=== PATIENT | female | born 1955 | race Caucasian/White ===

== ENCOUNTER 2017-07-24 11:51 | Inpatient (IN) | payer MEDICAID ==
[~2017-07-24] VITALS: Ht 154.9 cm; Wt 81.6 kg
[2017-07-24] MEDS ORDERED: Sodium Chloride 500ML 500 ML IV ONE (11:56)
[2017-07-24 12:00] VITALS: BP 96/62
--- NOTE | 2017-07-24 12:54 | Emergency Room Report ---
History of Present Illness General Chief Complaint: Abdominal Pain Source: Patient, Medical Record Present Illness HPI Patient present with complaints of lower abdominal suprapubic fullness and heaviness Dysuria and frequency patient has also seen evidence of blood in her urine Feeling generally weak Patient gives a report that she had a recent colonoscopy And reports that she had stones removed during the procedure Denies any vomiting or diarrhea denies any chest pain or shortness of breath questionable low-grade fever Denies any flank pain Allergies: Coded Allergies: No Known Allergies (Verified , 09/18/11) Patient History Past Medical History: see triage record Pertinent Family History: none Reviewed Nursing Documentation: PMH: Agreed, PSxH: Agreed Nursing Documentation-PMH Past Medical History: No History, Except For Hx Cardiac Problems: Yes - CAD, hyperlipidemia Hx Gastrointestinal Problems: Yes - dyspepsia History Of Psychiatric Problem: Yes - anxiety Review of Systems All Other Systems: negative except mentioned in HPI Physical Exam Vital Signs Date Time Temp Pulse Resp B/P (MAP) Pulse Ox O2 Delivery O2 Flow Rate FiO2 07/24/17 11:40 98.1 75 20 91/61 99 Nasal Cannula 2.0 Sp02 EP Interpretation: reviewed, normal General Appearance: no apparent distress - However patient appears frail Head: normocephalic, atraumatic Eyes: bilateral eye PERRL, bilateral eye EOMI ENT: hearing grossly normal, normal pharynx, TMs + canals normal, uvula midline , dry mucus membranes Neck: full range of motion, supple, no meningismus, no bony tend Respiratory: lungs clear, normal breath sounds, no rhonchi, no respiratory distress, no retraction, no accessory muscle use Cardiovascular #1: normal peripheral pulses, regular rate, rhythm, no edema, no gallop, no JVD, no murmur Gastrointestinal: normal bowel sounds, non tender, soft, no mass, no organomegaly, non-distended, no guarding, no hernia, no pulsatile mass, no rebound Genitourinary: no CVA tenderness Musculoskeletal: normal inspection Neurologic: oriented x3, responsive, 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-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 nml as tested, motor strength/ tone normal, sensory intact Psychiatric: mood/affect normal Skin: normal color, no rash, warm/dry, palpation normal Lymphatic: normal inspection, no adenopathy Medical Decision Making Diagnostic Impression: Primary Impression: UTI (urinary tract infection) Additional Impression: Sepsis ER Course Given the patient's history and presentation multiple differentials considered Patient has extensive blood work and imaging initiated Urine sample does show infectious pathology Patient initiated on IV antibiotics At this time continues to better given her general malaise and weakness patient is admitted for further care Labs Test 07/24/17 12:59 White Blood Count 12.6 K/UL (4.8-10.8) Red Blood Count 3.94 M/UL (4.20-5.40) Hemoglobin 12.5 G/DL (12.0-16.0) Hematocrit 36.8 % (37.0-47.0) Mean Corpuscular Volume 93 FL (80-99) Mean Corpuscular Hemoglobin 31.8 PG (27.0-31.0) Mean Corpuscular Hemoglobin Concent 34.0 G/DL (32.0-36.0) Red Cell Distribution Width 13.9 % (11.6-14.8) Platelet Count 347 K/UL (150-450) Mean Platelet Volume 7.1 FL (6.5-10.1) Neutrophils (%) (Auto) 59.5 % (45.0-75.0) Lymphocytes (%) (Auto) 30.2 % (20.0-45.0) Monocytes (%) (Auto) 7.2 % (1.0-10.0) Eosinophils (%) (Auto) 2.1 % (0.0-3.0) Basophils (%) (Auto) 1.0 % (0.0-2.0) Urine Color Yellow Urine Appearance Slightly cloudy Urine pH 7 (4.5-8.0) Urine Specific [place] 1.010 (1.005-1.035) Urine Protein Negative (NEGATIVE) Urine Glucose (UA) Negative (NEGATIVE) Urine Ketones Negative (NEGATIVE) Urine Occult Blood 4+ (NEGATIVE) Urine Nitrite Negative (NEGATIVE) Urine Bilirubin Negative (NEGATIVE) Urine Urobilinogen Normal MG/DL (0.0-1.0) Urine Leukocyte Esterase 2+ (NEGATIVE) Urine RBC 2-4 /HPF (0 - 2) Urine WBC 5-10 /HPF (0 - 2) Urine Squamous Epithelial Cells Few /LPF (NONE/OCC) Urine Bacteria Few /HPF (NONE) Sodium Level 141 mEQ/L (135-145) Potassium Level 3.8 mEQ/L (3.4-4.9) Chloride Level 101 mEQ/L (98-107) Carbon Dioxide Level 32 mEQ/L (20-30) Anion Gap 8 (5-15) Blood Urea Nitrogen 12 mg/dL (7-23) Creatinine 0.8 mg/dL (0.5-0.9) Estimat Glomerular Filtration Rate > 60 mL/min (>60) Glucose Level 105 mg/dL (74-106) Calcium Level 9.6 mg/dL (8.6-10.2) Total Bilirubin 0.3 mg/dL (0.0-1.2) Aspartate Amino Transf (AST/SGOT) 27 U/L (5-40) Alanine Aminotransferase (ALT/SGPT) 14 U/L (3-33) Alkaline Phosphatase 52 U/L (35-104) Total Protein 7.7 g/dL (6.6-8.7) Albumin 4.1 g/dL (3.5-5.2) Globulin 3.6 g/dL Albumin/Globulin Ratio 1.1 (1.0-2.7) Lipase 19 U/L (< 60) Rhythm Strip Diag. Results EP Interpretation: yes Rate: 88 Rhythm: NSR, no PVC's, no ectopy CT/MRI/US Diagnostic Results CT/MRI/US Diagnostic Results : Impression abdominal pelvis CT:Impression: Biliary stent. Pneumobilia indicating stent patency. Mild basilar atelectasis Moderate hiatal hernia Atherosclerotic disease Atrophic uterus Last Vital Signs Date Time Temp Pulse Resp B/P (MAP) Pulse Ox O2 Delivery O2 Flow Rate FiO2 07/24/17 12:00 75 20 96/62 99 Room Air 07/24/17 11:40 98.1 2.0 Status: improved Disposition: ADMITTED INPATIENT Condition: Serious Referrals: JASMIN STARKEY (PCP) GABRIELA GAYLE D.O. Jul 24, 2017 12:54
[2017-07-24 13:30] LABS: APPEARANCE,URINE SLIGHTLY CLOUDY; EOSINOPHILS % (AUTO) 2.1 % (0.0-3.0); KETONES,URINE NEGATIVE (NEGATIVE); LEUKOCYTE ESTERASE ,URINE 2+ (NEGATIVE); LYMPHOCYTES % (AUTO) 30.2 % (20.0-45.0); MEAN CORPUSCULAR HEMOGLOBIN 31.8 PG (27.0-31.0); MEAN CORPUSCULAR VOLUME 93 FL (80-99); MEAN PLATELET VOLUME 7.1 FL (6.5-10.1); MONOCYTES % (AUTO) 7.2 % (1.0-10.0); NEUTROPHILS % (AUTO) 59.5 % (45.0-75.0); NITRITE,URINE NEGATIVE (NEGATIVE); PH,URINE 7 (4.5-8.0); PLATELET COUNT 347 K/UL (150-450); PROTEIN,URINE NEGATIVE (NEGATIVE); RED BLOOD COUNT 3.94 M/UL (4.20-5.40); RED CELL DISTRIBUTION WIDTH 13.9 % (11.6-14.8); UROBILINOGEN,URINE NORMAL MG/DL (0.0-1.0); WHITE BLOOD COUNT 12.6 K/UL (4.8-10.8)
[2017-07-24 13:39] LABS: BACTERIA,URINE FEW /HPF; SQUAMOUS EPITHELIAL CELL,UR FEW /LPF (NONE/OCC)
[2017-07-24] MEDS ORDERED: cefTRIAXone 1 GM in NS 55 ML IVPB ONE (13:45)
[2017-07-24 13:53] LABS: ALANINE AMINOTRANSFERASE 14 U/L (3-33); ALBUMIN/GLOBULIN RATIO 1.1 (1.0-2.7); ANION GAP 8 (5-15); ASPARTATE AMINO TRANSFERASE 27 U/L (5-40); CALCIUM 9.6 mg/dL (8.6-10.2); CARBON DIOXIDE 32 mEQ/L (20-30); CHLORIDE 101 mEQ/L (98-107); CREATININE 0.8 mg/dL (0.5-0.9); GLOMERULAR FILTRATION RATE > 60 mL/min (>60); HEMOLYSIS 0; LIPASE 19 U/L (< 60); POTASSIUM 3.8 mEQ/L (3.4-4.9); SODIUM 141 mEQ/L (135-145); TOTAL PROTEIN 7.7 g/dL (6.6-8.7)
--- NOTE | 2017-07-24 14:08 | Diagnostic Imaging Report ---
Indication: Abdominal pain Technique: Continuous helical transaxial imaging of the abdomen and pelvis was obtained from the lung bases to the pubic symphysis. No intravenous contrast was administered. Coronal 2-D reformats were also obtained. Total Dose length Product (DLP): [address] Dose Index Volume (CTDIvol): 2.15, 17.73 mGy Comparison: none Findings: There is a moderate size hiatal hernia. There is pneumobilia associated with presence of a biliary stent which appears to be in good position. Appendix SVC. There are no secondary signs of acute appendicitis. No free fluid or free air identified. Aorta is mildly ectatic and calcified. Small iliac nodes are present nonspecific. The uterus is present and atrophic. There is no nephrolithiasis identified. Extrarenal pelvis noted bilaterally. Impression: Biliary stent. Pneumobilia indicating stent patency. Mild basilar atelectasis Moderate hiatal hernia Atherosclerotic disease Atrophic uterus The CT scanner at [facility] is accredited by the [employer] and the scans are performed using dose optimization techniques as appropriate to a performed exam including Automatic Exposure control.
[2017-07-24] MEDS ORDERED: Nitroglycerin Subl 0.4mg tab SL PRN (14:45)
[2017-07-24] MEDS ORDERED: LORazepam Inj 2mg/ml 1ml IV PRN (14:45)
[2017-07-24] MEDS ORDERED: Miralax 17gm pkt ORAL PRN (14:45)
[2017-07-24] MEDS ORDERED: Mylanta II UD 30ml ORAL PRN (14:45)
[2017-07-24] MEDS ORDERED: Metoclopramide 10mg/2ml Inj IVP PRN (14:45)
[2017-07-24 15:04] VITALS: BP 96/55
[2017-07-24] MEDS ORDERED: FOSAMAX70 MG ORAL (15:05)
[2017-07-24] MEDS ORDERED: TOPROL XL100 MG ORAL (15:05)
[2017-07-24] MEDS ORDERED: ATORVASTATIN CA10 MG ORAL (15:05)
[2017-07-24] MEDS ORDERED: DALMANE15 MG ORAL (15:05)
[2017-07-24] MEDS ORDERED: ZYPREXA10 MG ORAL (15:05)
[2017-07-24] MEDS ORDERED: PRILOSEC OTC20 MG ORAL (15:05)
[2017-07-24] MEDS ORDERED: CARAFATE1 G1 ORAL (15:05)
[2017-07-24] MEDS ORDERED: HYOSCYAMINE0.375 M1 ORAL (15:05)
[2017-07-24] MEDS ORDERED: ZOFRAN ODT8 MG ORAL (15:05)
[2017-07-24] MEDS ORDERED: BISACODYL5 MG ORAL (15:05)
[2017-07-24] MEDS ORDERED: ATIVAN0.5 MG ORAL (15:05)
[2017-07-24] MEDS ORDERED: TESSALON PERLE100 MG ORAL (15:05)
[2017-07-24] MEDS ORDERED: PROTONIX40 MG ORAL (15:05)
[2017-07-24] MEDS ORDERED: FENOFIBRATE150 MG PO (15:05)
[2017-07-24] MEDS ORDERED: CYMBALTA60 MG ORAL (15:05)
[2017-07-24] MEDS ORDERED: PAROXETINE HCL20 MG PO (15:05)
[2017-07-24 16:16] VITALS: BP 110/67
--- NOTE | 2017-07-24 18:40 | History and Physical ---
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 Denies any vomiting or diarrhea denies any chest pain or shortness of breath questionable low-grade fever. Allergies: Coded Allergies: No Known Allergies (Verified , 09/18/11) Medication History Scheduled Alendronate Sodium* (Fosamax*), 70 MG ORAL ONCE A WEEK, (Reported) Atorvastatin Calcium* (Lipitor*), 10 MG ORAL BEDTIME, (Reported) Benzonatate* (Tessalon Perle*), 100 MG ORAL THREE TIMES A DAY, (Reported) Bisacodyl* (Dulcolax*), 5 MG ORAL DAILY, (Reported) Duloxetine Hcl* (Cymbalta*), 60 MG ORAL DAILY, (Reported) Flurazepam HCl (Flurazepam HCl), 15 MG ORAL QHS, (Reported) Hyoscyamine* (Levsinex*), 0.125 MG ORAL EVERY 12 HOURS, (Reported) Lorazepam* (Ativan*), 0.5 MG ORAL HS, (Reported) Metoprolol Succinate* (Toprol Xl*), 100 MG ORAL DAILY, (Reported) Olanzapine* (Zyprexa*), 10 MG ORAL DAILY, (Reported) Omeprazole Magnesium (Prilosec Otc), 20 MG ORAL DAILY, (Reported) Pantoprazole* (Protonix*), 40 MG ORAL DAILY, (Reported) Paroxetine Hcl* (Paxil*), 30 MG PO DAILY, (Reported) Sucralfate* (Carafate*), 1 GM ORAL Q8HR, (Reported) Scheduled PRN Ondansetron Odt* (Zofran Odt*), 8 MG ORAL Q6H PRN for Nausea & Vomiting, ( Reported) Miscellaneous Medications Fenofibrate (Fenofibrate), 145 MG PO, (Reported) Patient History Healthcare decision maker Resuscitation status Advanced Directive on File Past Medical/Surgical History Past Medical/Surgical History: (1) biliary stent (2) Abdominal pain Review of Systems All Other Systems: negative except mentioned in HPI Physical Exam General Appearance: WD/WN Lines, tubes and drains: peripheral, central line HEENT: normocephalic, atraumatic Neck: non-tender, normal alignment Respiratory/Chest: chest wall non-tender, lungs clear Breasts: no masses Cardiovascular/Chest: normal peripheral pulses Abdomen: normal bowel sounds, non tender Genitourinary/Rectal: normal genital exam Extremities: normal range of motion, non-pitting Neurologic: 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 technical officer II-XII grossly normal Lymphatic: anterior cervical Last 24 Hour Vital Signs Date Time Temp Pulse Resp B/P (MAP) Pulse Ox O2 Delivery O2 Flow Rate FiO2 07/24/17 16:16 97.7 69 19 110/67 96 Room Air 07/24/17 15:04 97.7 68 16 96/55 100 Room Air 07/24/17 14:52 67 16 98/55 98 Room Air 07/24/17 12:00 75 20 96/62 99 Room Air 07/24/17 11:40 98.1 75 20 91/61 99 Nasal Cannula 2.0 Intake and Output 07/24/17 07/25/17 19:00 07:00 Intake Total 0 ml Output Total 100 ml Balance -100 ml Intake Oral 0 ml Output Urine Total 100 ml Laboratory Tests Test 07/24/17 12:59 White Blood Count 12.6 K/UL (4.8-10.8) H Red Blood Count 3.94 M/UL (4.20-5.40) L Hemoglobin 12.5 G/DL (12.0-16.0) Hematocrit 36.8 % (37.0-47.0) L Mean Corpuscular Volume 93 FL (80-99) Mean Corpuscular Hemoglobin 31.8 PG (27.0-31.0) H Mean Corpuscular Hemoglobin Concent 34.0 G/DL (32.0-36.0) Red Cell Distribution Width 13.9 % (11.6-14.8) Platelet Count 347 K/UL (150-450) Mean Platelet Volume 7.1 FL (6.5-10.1) Neutrophils (%) (Auto) 59.5 % (45.0-75.0) Lymphocytes (%) (Auto) 30.2 % (20.0-45.0) Monocytes (%) (Auto) 7.2 % (1.0-10.0) Eosinophils (%) (Auto) 2.1 % (0.0-3.0) Basophils (%) (Auto) 1.0 % (0.0-2.0) Urine Color Yellow Urine Appearance Slightly cloudy Urine pH 7 (4.5-8.0) Urine Specific [place] 1.010 (1.005-1.035) Urine Protein Negative (NEGATIVE) Urine Glucose (UA) Negative (NEGATIVE) Urine Ketones Negative (NEGATIVE) Urine Occult Blood 4+ (NEGATIVE) H Urine Nitrite Negative (NEGATIVE) Urine Bilirubin Negative (NEGATIVE) Urine Urobilinogen Normal MG/DL (0.0-1.0) Urine Leukocyte Esterase 2+ (NEGATIVE) H Urine RBC 2-4 /HPF (0 - 2) H Urine WBC 5-10 /HPF (0 - 2) H Urine Squamous Epithelial Cells Few /LPF (NONE/OCC) Urine Bacteria Few /HPF (NONE) Sodium Level 141 mEQ/L (135-145) Potassium Level 3.8 mEQ/L (3.4-4.9) Chloride Level 101 mEQ/L (98-107) Carbon Dioxide Level 32 mEQ/L (20-30) H Anion Gap 8 (5-15) Blood Urea Nitrogen 12 mg/dL (7-23) Creatinine 0.8 mg/dL (0.5-0.9) Estimat Glomerular Filtration Rate > 60 mL/min (>60) Glucose Level 105 mg/dL (74-106) Calcium Level 9.6 mg/dL (8.6-10.2) Total Bilirubin 0.3 mg/dL (0.0-1.2) Aspartate Amino Transf (AST/SGOT) 27 U/L (5-40) Alanine Aminotransferase (ALT/SGPT) 14 U/L (3-33) Alkaline Phosphatase 52 U/L (35-104) Total Protein 7.7 g/dL (6.6-8.7) Albumin 4.1 g/dL (3.5-5.2) Globulin 3.6 g/dL Albumin/Globulin Ratio 1.1 (1.0-2.7) Lipase 19 U/L (< 60) Height (Feet): 5 Height (Inches): 1.00 Weight (Pounds): 180 Medications Current Medications Medications (Trade) Dose Ordered Sig/Zenobia Route PRN Reason Start Time Stop Time Status Last Admin Dose Admin Acetaminophen (Tylenol) 650 mg Q4H PRN ORAL fever 07/24/17 14:45 08/23/17 14:44 Al Hydroxide/Mg Hydroxide (Mylanta II) 30 ml Q6H PRN ORAL dyspepsia 07/24/17 14:45 08/23/17 14:44 Dextrose (Dextrose 50%) STAT PRN IV Hypoglycemia 07/24/17 14:45 08/23/17 14:44 Dextrose/Sodium Chloride 1,000 ml @ 75 mls/hr [id number] IV 07/24/17 17:40 08/23/17 17:39 Diphenhydramine HCl (Benadryl) 25 mg Q6H PRN ORAL Itching/Pruritis 07/24/17 14:45 08/23/17 14:44 Heparin Sodium (Porcine) (Heparin 5000 units/ml) 5,000 units EVERY 12 HOURS SUBQ 07/24/17 21:00 08/23/17 20:59 Lorazepam (Ativan 2mg/ml 1ml) 1 mg EVERY 4 HOURS PRN IV agitation 07/24/17 14:45 07/31/17 14:44 Metoclopramide HCl (Reglan) 10 mg EVERY 6 HOURS PRN IVP servere nauasea 07/24/17 14:45 08/23/17 14:44 Morphine Sulfate (Morphine Sulfate) 2 mg EVERY 4 HOURS PRN IVP severe Pain (Pain Scale 7-10) 07/24/17 14:45 07/31/17 14:44 Nitroglycerin (Ntg) 0.4 mg Q5M X 3 DOSES PRN SL Prn Chest Pain 07/24/17 14:45 08/23/17 14:44 Ondansetron HCl (Zofran) 4 mg Q6H PRN IVP Nausea & Vomiting 07/24/17 14:45 08/23/17 14:44 Pantoprazole (Protonix) 40 mg DAILY IV 07/25/17 09:00 08/24/17 08:59 Polyethylene Glycol (Miralax) 17 gm HSPRN PRN ORAL Constipation 07/24/17 14:45 08/23/17 14:44 Promethazine HCl (Phenergan) 25 mg EVERY 8 HOURS PRN IV refractory nausea 07/24/17 14:45 08/23/17 14:44 Temazepam (Restoril) 15 mg HSPRN PRN ORAL Insomnia 07/24/17 14:45 07/31/17 14:44 Assessment/Plan Problem List: (1) Abdominal pain ICD Codes: R10.9 - Unspecified abdominal pain SNOMED: [id number] (2) biliary stent Assessment/Plan npo IV fluids gets records from previous hospitalization GI evaluation TANGELA SCRUGGS Jul 24, 2017 18:40
[2017-07-24] MEDS: D5 1/2NS 1,000 ML IV SCH (18:51)
--- NOTE | 2017-07-24 19:07 | Consultation ---
History of Present Illness General Date patient seen: Jul 24, 2017 Time patient seen: 21:27 Chief Complaint: Abdominal Pain Present Illness HPI 61 y/o F with hx of CAD, HLD, GERD, Anxiety presents to ED on 07/24 with lower abd/suprapubic fullness and heaviness, dysuria, frequency and hematuria. Also endorse general weakness. Denies vomiting, diarrhea, CP, SOB, flank pain, cough, n/v. Allergies: Coded Allergies: No Known Allergies (Verified , 09/18/11) Medication History Scheduled Alendronate Sodium* (Fosamax*), 70 MG ORAL ONCE A WEEK, (Reported) Atorvastatin Calcium* (Lipitor*), 10 MG ORAL BEDTIME, (Reported) Benzonatate* (Tessalon Perle*), 100 MG ORAL THREE TIMES A DAY, (Reported) Bisacodyl* (Dulcolax*), 5 MG ORAL DAILY, (Reported) Duloxetine Hcl* (Cymbalta*), 60 MG ORAL DAILY, (Reported) Flurazepam HCl (Flurazepam HCl), 15 MG ORAL QHS, (Reported) Hyoscyamine* (Levsinex*), 0.125 MG ORAL EVERY 12 HOURS, (Reported) Lorazepam* (Ativan*), 0.5 MG ORAL HS, (Reported) Metoprolol Succinate* (Toprol Xl*), 100 MG ORAL DAILY, (Reported) Olanzapine* (Zyprexa*), 10 MG ORAL DAILY, (Reported) Omeprazole Magnesium (Prilosec Otc), 20 MG ORAL DAILY, (Reported) Pantoprazole* (Protonix*), 40 MG ORAL DAILY, (Reported) Paroxetine Hcl* (Paxil*), 30 MG PO DAILY, (Reported) Sucralfate* (Carafate*), 1 GM ORAL Q8HR, (Reported) Scheduled PRN Ondansetron Odt* (Zofran Odt*), 8 MG ORAL Q6H PRN for Nausea & Vomiting, ( Reported) Miscellaneous Medications Fenofibrate (Fenofibrate), 145 MG PO, (Reported) Patient History Healthcare decision maker Resuscitation status Advanced Directive on File Patient History Narrative PMHx: Above FHx: non pertinent from ID Social Hx:d enies toxic habits Review of Systems All Other Systems: negative except mentioned in HPI Physical Exam Physical Exam Narrative General Appearance: no apparent distress - However patient appears frail HEENT: no oral lesions, PERRL Neck: full range of motion, supple, Respiratory: lungs clear, normal breath sounds, no rhonchi, no respiratory distress Cardiovascular regular rate, rhythm, no edema, no gallop, no JVD, no murmur Gastrointestinal: normal bowel sounds, non tender, soft, no mass, no organomegaly, non-distended, Genitourinary: no CVA tenderness Musculoskeletal: normal inspection Neurologic: oriented x3, responsive, no focal deficits Skin: normal color, no rash, warm/dry, palpation normal Last 24 Hour Vital Signs Date Time Temp Pulse Resp B/P (MAP) Pulse Ox O2 Delivery O2 Flow Rate FiO2 07/24/17 16:16 97.7 69 19 110/67 96 Room Air 07/24/17 15:04 97.7 68 16 96/55 100 Room Air 07/24/17 14:52 67 16 98/55 98 Room Air 07/24/17 12:00 75 20 96/62 99 Room Air 07/24/17 11:40 98.1 75 20 91/61 99 Nasal Cannula 2.0 Intake and Output 07/24/17 07/25/17 19:00 07:00 Intake Total 0 ml Output Total 100 ml Balance -100 ml Intake Oral 0 ml Output Urine Total 100 ml Laboratory Tests Test 07/24/17 12:59 White Blood Count 12.6 K/UL (4.8-10.8) H Red Blood Count 3.94 M/UL (4.20-5.40) L Hemoglobin 12.5 G/DL (12.0-16.0) Hematocrit 36.8 % (37.0-47.0) L Mean Corpuscular Volume 93 FL (80-99) Mean Corpuscular Hemoglobin 31.8 PG (27.0-31.0) H Mean Corpuscular Hemoglobin Concent 34.0 G/DL (32.0-36.0) Red Cell Distribution Width 13.9 % (11.6-14.8) Platelet Count 347 K/UL (150-450) Mean Platelet Volume 7.1 FL (6.5-10.1) Neutrophils (%) (Auto) 59.5 % (45.0-75.0) Lymphocytes (%) (Auto) 30.2 % (20.0-45.0) Monocytes (%) (Auto) 7.2 % (1.0-10.0) Eosinophils (%) (Auto) 2.1 % (0.0-3.0) Basophils (%) (Auto) 1.0 % (0.0-2.0) Urine Color Yellow Urine Appearance Slightly cloudy Urine pH 7 (4.5-8.0) Urine Specific [place] 1.010 (1.005-1.035) Urine Protein Negative (NEGATIVE) Urine Glucose (UA) Negative (NEGATIVE) Urine Ketones Negative (NEGATIVE) Urine Occult Blood 4+ (NEGATIVE) H Urine Nitrite Negative (NEGATIVE) Urine Bilirubin Negative (NEGATIVE) Urine Urobilinogen Normal MG/DL (0.0-1.0) Urine Leukocyte Esterase 2+ (NEGATIVE) H Urine RBC 2-4 /HPF (0 - 2) H Urine WBC 5-10 /HPF (0 - 2) H Urine Squamous Epithelial Cells Few /LPF (NONE/OCC) Urine Bacteria Few /HPF (NONE) Sodium Level 141 mEQ/L (135-145) Potassium Level 3.8 mEQ/L (3.4-4.9) Chloride Level 101 mEQ/L (98-107) Carbon Dioxide Level 32 mEQ/L (20-30) H Anion Gap 8 (5-15) Blood Urea Nitrogen 12 mg/dL (7-23) Creatinine 0.8 mg/dL (0.5-0.9) Estimat Glomerular Filtration Rate > 60 mL/min (>60) Glucose Level 105 mg/dL (74-106) Calcium Level 9.6 mg/dL (8.6-10.2) Total Bilirubin 0.3 mg/dL (0.0-1.2) Aspartate Amino Transf (AST/SGOT) 27 U/L (5-40) Alanine Aminotransferase (ALT/SGPT) 14 U/L (3-33) Alkaline Phosphatase 52 U/L (35-104) Total Protein 7.7 g/dL (6.6-8.7) Albumin 4.1 g/dL (3.5-5.2) Globulin 3.6 g/dL Albumin/Globulin Ratio 1.1 (1.0-2.7) Lipase 19 U/L (< 60) Height (Feet): 5 Height (Inches): 1.00 Weight (Pounds): 180 Medications Current Medications Medications (Trade) Dose Ordered Sig/Zenobia Route PRN Reason Start Time Stop Time Status Last Admin Dose Admin Acetaminophen (Tylenol) 650 mg Q4H PRN ORAL fever 07/24/17 14:45 08/23/17 14:44 Al Hydroxide/Mg Hydroxide (Mylanta II) 30 ml Q6H PRN ORAL dyspepsia 07/24/17 14:45 08/23/17 14:44 Dextrose (Dextrose 50%) STAT PRN IV Hypoglycemia 07/24/17 14:45 08/23/17 14:44 Dextrose/Sodium Chloride 1,000 ml @ 75 mls/hr [id number] IV 07/24/17 17:40 08/23/17 17:39 07/24/17 18:51 Diphenhydramine HCl (Benadryl) 25 mg Q6H PRN ORAL Itching/Pruritis 07/24/17 14:45 08/23/17 14:44 Heparin Sodium (Porcine) (Heparin 5000 units/ml) 5,000 units EVERY 12 HOURS SUBQ 07/24/17 21:00 08/23/17 20:59 Lorazepam (Ativan 2mg/ml 1ml) 1 mg EVERY 4 HOURS PRN IV agitation 07/24/17 14:45 07/31/17 14:44 Metoclopramide HCl (Reglan) 10 mg EVERY 6 HOURS PRN IVP servere nauasea 07/24/17 14:45 08/23/17 14:44 Morphine Sulfate (Morphine Sulfate) 2 mg EVERY 4 HOURS PRN IVP severe Pain (Pain Scale 7-10) 07/24/17 14:45 07/31/17 14:44 Nitroglycerin (Ntg) 0.4 mg Q5M X 3 DOSES PRN SL Prn Chest Pain 07/24/17 14:45 08/23/17 14:44 Ondansetron HCl (Zofran) 4 mg Q6H PRN IVP Nausea & Vomiting 07/24/17 14:45 08/23/17 14:44 Pantoprazole (Protonix) 40 mg DAILY IV 07/25/17 09:00 08/24/17 08:59 Polyethylene Glycol (Miralax) 17 gm HSPRN PRN ORAL Constipation 07/24/17 14:45 08/23/17 14:44 Promethazine HCl (Phenergan) 25 mg EVERY 8 HOURS PRN IV refractory nausea 07/24/17 14:45 08/23/17 14:44 Temazepam (Restoril) 15 mg HSPRN PRN ORAL Insomnia 07/24/17 14:45 07/31/17 14:44 Assessment/Plan Assessment/Plan Abx: IV Ceftriaxone x1 07/23 Assesment: Lower abd fullnes/Dysuria - r/o UTI, only mild pyuria on u/a, however -CT abd/p: Biliary stent. Pneumobilia indicating stent patency. Mild basilar atelectasis. Moderate hiatal hernia. Atherosclerotic disease. Atrophic uterus -u/a WBC 5-10, nit neg, leuk +2; ucx pending Leukocytosis, mild CAD, HLD, GERD, Anxiety Plan: -Continue IV Ceftriaxone pending urine culture -f/u cx -Monitor CBC/BMP, temperatures Thank you for this consultation. Will continue to follow along with you. Discussed with Roula Flowers M.D. Jul 24, 2017 19:07
[2017-07-24 20:00] VITALS: BP 109/56
[2017-07-24] MEDS: Heparin 5000 units/ml inj SUBQ SCH (21:33)
[2017-07-25] VITALS: BP 100/62
[2017-07-25] MEDS: cefTRIAXone 1 GM in D5W 55 ML IVPB SCH ×2 (01:33→21:48)
[2017-07-25 04:00] VITALS: BP 103/61
[2017-07-25] MEDS: D5 1/2NS 1,000 ML IV SCH ×3 (06:54→17:39)
[2017-07-25 07:31] LABS: BASOPHILS % (AUTO) 1.4 % (0.0-2.0); EOSINOPHILS % (AUTO) 4.6 % (0.0-3.0); LYMPHOCYTES % (AUTO) 46.9 % (20.0-45.0); MEAN CORPUSCULAR HEMOGLOBIN 30.1 PG (27.0-31.0); MEAN CORPUSCULAR HGB CONC 31.8 G/DL (32.0-36.0); MEAN CORPUSCULAR VOLUME 95 FL (80-99); MEAN PLATELET VOLUME 7.1 FL (6.5-10.1); MONOCYTES % (AUTO) 8.3 % (1.0-10.0); NEUTROPHILS % (AUTO) 38.8 % (45.0-75.0); PLATELET COUNT 360 K/UL (150-450); WHITE BLOOD COUNT 7.5 K/UL (4.8-10.8)
[2017-07-25 07:47] LABS: ALANINE AMINOTRANSFERASE 12 U/L (3-33); ALBUMIN/GLOBULIN RATIO 0.6 (1.0-2.7); AMYLASE 51 U/L (10-110); ANION GAP 10 (5-15); ASPARTATE AMINO TRANSFERASE 25 U/L (5-40); CALCIUM 8.5 mg/dL (8.6-10.2); CARBON DIOXIDE 30 mEQ/L (20-30); CHLORIDE 106 mEQ/L (98-107); CREATININE 0.7 mg/dL (0.5-0.9); GLOMERULAR FILTRATION RATE > 60 mL/min (>60); HEMOLYSIS 1; LIPASE 15 U/L (< 60); POTASSIUM 3.7 mEQ/L (3.4-4.9); SODIUM 146 mEQ/L (135-145); TOTAL PROTEIN 8.5 g/dL (6.6-8.7)
[2017-07-25 08:10] VITALS: BP 101/59
--- NOTE | 2017-07-25 08:32 | Infectious Diseases Prog Note ---
Assessment/Plan Assessment/Plan Abx: IV Ceftriaxone x1 07/23 Assesment: Lower abd fullnes/Dysuria - r/o UTI, only mild pyuria on u/a, however -CT abd/p: Biliary stent. Pneumobilia indicating stent patency. Mild basilar atelectasis. Moderate hiatal hernia. Atherosclerotic disease. Atrophic uterus -u/a WBC 5-10, nit neg, leuk +2; ucx pending Leukocytosis, mild-resolved CAD, HLD, GERD, Anxiety Plan: -Continue IV Ceftriaxone #3/-7 pending urine culture -upon discharge can be transition to PO keflex if susceptible -f/u cx -Monitor CBC/BMP, temperatures Thank you for this consultation. Will continue to follow along with you. Discussed with RN. Subjective Allergies: Coded Allergies: No Known Allergies (Verified , 09/18/11) Subjective afebrile VSS leukocytosis resolved ucx pending Objective Vital Signs Last 24 Hour Vital Signs Date Time Temp Pulse Resp B/P (MAP) Pulse Ox O2 Delivery O2 Flow Rate FiO2 07/25/17 08:10 97.5 77 19 101/59 95 Room Air 07/25/17 04:00 98.1 68 20 103/61 92 Room Air 07/25/17 00:00 97.1 72 20 100/62 97 Room Air 07/24/17 20:00 97.1 71 20 109/56 95 Room Air 07/24/17 16:16 97.7 69 19 110/67 96 Room Air 07/24/17 15:04 97.7 68 16 96/55 100 Room Air 07/24/17 14:52 67 16 98/55 98 Room Air 07/24/17 12:00 75 20 96/62 99 Room Air 07/24/17 11:40 98.1 75 20 91/61 99 Nasal Cannula 2.0 Height (Feet): 5 Height (Inches): 1.00 Weight (Pounds): 180 Objective General Appearance: no apparent distress - However patient appears frail HEENT: no oral lesions, PERRL Neck: full range of motion, supple, Respiratory: lungs clear, normal breath sounds, no rhonchi, no respiratory distress Cardiovascular regular rate, rhythm, no edema, no gallop, no JVD, no murmur Gastrointestinal: normal bowel sounds, non tender, soft, no mass, no organomegaly, non-distended, Genitourinary: no CVA tenderness Musculoskeletal: normal inspection Neurologic: oriented x3, responsive, no focal deficits Skin: normal color, no rash, warm/dry, palpation normal reviewed Laboratory Tests Test 07/24/17 12:59 07/25/17 06:25 White Blood Count 12.6 K/UL (4.8-10.8) H 7.5 K/UL (4.8-10.8) Red Blood Count 3.94 M/UL (4.20-5.40) L 3.70 M/UL (4.20-5.40) L Hemoglobin 12.5 G/DL (12.0-16.0) 11.2 G/DL (12.0-16.0) L Hematocrit 36.8 % (37.0-47.0) L 35.1 % (37.0-47.0) L Mean Corpuscular Volume 93 FL (80-99) 95 FL (80-99) Mean Corpuscular Hemoglobin 31.8 PG (27.0-31.0) H 30.1 PG (27.0-31.0) Mean Corpuscular Hemoglobin Concent 34.0 G/DL (32.0-36.0) 31.8 G/DL (32.0-36.0) L Red Cell Distribution Width 13.9 % (11.6-14.8) 14.0 % (11.6-14.8) Platelet Count 347 K/UL (150-450) 360 K/UL (150-450) Mean Platelet Volume 7.1 FL (6.5-10.1) 7.1 FL (6.5-10.1) Neutrophils (%) (Auto) 59.5 % (45.0-75.0) 38.8 % (45.0-75.0) L Lymphocytes (%) (Auto) 30.2 % (20.0-45.0) 46.9 % (20.0-45.0) H Monocytes (%) (Auto) 7.2 % (1.0-10.0) 8.3 % (1.0-10.0) Eosinophils (%) (Auto) 2.1 % (0.0-3.0) 4.6 % (0.0-3.0) H Basophils (%) (Auto) 1.0 % (0.0-2.0) 1.4 % (0.0-2.0) Urine Color Yellow Urine Appearance Slightly cloudy Urine pH 7 (4.5-8.0) Urine Specific Danese 1.010 (1.005-1.035) Urine Protein Negative (NEGATIVE) Urine Glucose (UA) Negative (NEGATIVE) Urine Ketones Negative (NEGATIVE) Urine Occult Blood 4+ (NEGATIVE) H Urine Nitrite Negative (NEGATIVE) Urine Bilirubin Negative (NEGATIVE) Urine Urobilinogen Normal MG/DL (0.0-1.0) Urine Leukocyte Esterase 2+ (NEGATIVE) H Urine RBC 2-4 /HPF (0 - 2) H Urine WBC 5-10 /HPF (0 - 2) H Urine Squamous Epithelial Cells Few /LPF (NONE/OCC) Urine Bacteria Few /HPF (NONE) Sodium Level 141 mEQ/L (135-145) 146 mEQ/L (135-145) H Potassium Level 3.8 mEQ/L (3.4-4.9) 3.7 mEQ/L (3.4-4.9) Chloride Level 101 mEQ/L (98-107) 106 mEQ/L (98-107) Carbon Dioxide Level 32 mEQ/L (20-30) H 30 mEQ/L (20-30) Anion Gap 8 (5-15) 10 (5-15) Blood Urea Nitrogen 12 mg/dL (7-23) 10 mg/dL (7-23) Creatinine 0.8 mg/dL (0.5-0.9) 0.7 mg/dL (0.5-0.9) Estimat Glomerular Filtration Rate > 60 mL/min (>60) > 60 mL/min (>60) Glucose Level 105 mg/dL (74-106) 101 mg/dL (74-106) Calcium Level 9.6 mg/dL (8.6-10.2) 8.5 mg/dL (8.6-10.2) L Total Bilirubin 0.3 mg/dL (0.0-1.2) 0.3 mg/dL (0.0-1.2) Aspartate Amino Transf (AST/SGOT) 27 U/L (5-40) 25 U/L (5-40) Alanine Aminotransferase (ALT/SGPT) 14 U/L (3-33) 12 U/L (3-33) Alkaline Phosphatase 52 U/L (35-104) 47 U/L (35-104) Total Protein 7.7 g/dL (6.6-8.7) 8.5 g/dL (6.6-8.7) Albumin 4.1 g/dL (3.5-5.2) 3.4 g/dL (3.5-5.2) L Globulin 3.6 g/dL 5.1 g/dL Albumin/Globulin Ratio 1.1 (1.0-2.7) 0.6 (1.0-2.7) L Lipase 19 U/L (< 60) 15 U/L (< 60) Activated Partial Thromboplast Time 30 SEC (23-33) Amylase Level 51 U/L (10-110) Current Medications Medications (Trade) Dose Ordered Sig/Zenobia Route PRN Reason Start Time Stop Time Status Last Admin Dose Admin Acetaminophen (Tylenol) 650 mg Q4H PRN ORAL fever 07/24/17 14:45 08/23/17 14:44 Al Hydroxide/Mg Hydroxide (Mylanta II) 30 ml Q6H PRN ORAL dyspepsia 07/24/17 14:45 08/23/17 14:44 Ceftriaxone Sodium 1 gm/ Dextrose 55 ml @ 110 mls/hr Q24H IVPB 07/24/17 22:30 07/31/17 22:29 07/25/17 01:33 Dextrose (Dextrose 50%) STAT PRN IV Hypoglycemia 07/24/17 14:45 08/23/17 14:44 Dextrose/Sodium Chloride 1,000 ml @ 75 mls/hr [id number] IV 07/24/17 17:40 08/23/17 17:39 07/24/17 18:51 Diphenhydramine HCl (Benadryl) 25 mg Q6H PRN ORAL Itching/Pruritis 07/24/17 14:45 08/23/17 14:44 Heparin Sodium (Porcine) (Heparin 5000 units/ml) 5,000 units EVERY 12 HOURS SUBQ 07/24/17 21:00 08/23/17 20:59 07/24/17 21:33 Lorazepam (Ativan 2mg/ml 1ml) 1 mg EVERY 4 HOURS PRN IV agitation 07/24/17 14:45 07/31/17 14:44 Metoclopramide HCl (Reglan) 10 mg EVERY 6 HOURS PRN IVP servere nauasea 07/24/17 14:45 08/23/17 14:44 Morphine Sulfate (Morphine Sulfate) 2 mg EVERY 4 HOURS PRN IVP severe Pain (Pain Scale 7-10) 07/24/17 14:45 07/31/17 14:44 Nitroglycerin (Ntg) 0.4 mg Q5M X 3 DOSES PRN SL Prn Chest Pain 07/24/17 14:45 08/23/17 14:44 Ondansetron HCl (Zofran) 4 mg Q6H PRN IVP Nausea & Vomiting 07/24/17 14:45 08/23/17 14:44 Pantoprazole (Protonix) 40 mg DAILY IV 07/25/17 09:00 08/24/17 08:59 Polyethylene Glycol (Miralax) 17 gm HSPRN PRN ORAL Constipation 07/24/17 14:45 08/23/17 14:44 Promethazine HCl (Phenergan) 25 mg EVERY 8 HOURS PRN IV refractory nausea 07/24/17 14:45 08/23/17 14:44 Temazepam (Restoril) 15 mg HSPRN PRN ORAL Insomnia 07/24/17 14:45 07/31/17 14:44 07/24/17 21:40 Roula Acosta M.D. Jul 25, 2017 08:32
[2017-07-25] MEDS: Pantoprazole Inj IV SCH (08:34)
[2017-07-25] MEDS: Morphine Sulfate 2mg/ml Inj IVP PRN (08:35)
[2017-07-25] MEDS: Heparin 5000 units/ml inj SUBQ SCH ×2 (08:36→21:50)
--- NOTE | 2017-07-25 09:27 | Diagnostic Imaging Report ---
Indication: Abdominal pain Technique: Ultrasound of the abdomen. Comparison: CT abdomen and pelvis from earlier the same day Findings: The pancreas is incompletely visualized. Visualized portions are unremarkable. The liver is normal in size and echogenicity. No focal liver lesions are identified. Visualized portions of the main portal vein and the hepatic veins are grossly unremarkable although incompletely evaluated. Gallbladder is absent. There is pneumobilia. The common bile duct stent is noted within the mid and distal common bile duct. The proximal common bile and measures up to 1.2 cm. Distal common bile duct is obscured. Bilateral kidneys demonstrate normal echogenicity. No focal renal lesions are seen. There is no hydronephrosis. No echogenic renal stones are identified. The spleen is normal in size and echogenicity. The visualized aorta is normal in caliber. Visualized portions of the inferior vena cava are unremarkable. Impression: Cholecystectomy. Common bile duct stent noted in the mid and distal common bile duct. Proximal common bile duct dilated measuring 1.2 cm. Pneumobilia better demonstrated by CT. Clinical correlation recommended.
[2017-07-25 12:00] VITALS: BP 101/61
[2017-07-25 16:00] VITALS: BP 85/54
[2017-07-25] MEDS ORDERED: Tubing IV Secondary IV ONE (16:27)
[2017-07-25 19:41] VITALS: BP 110/75
[2017-07-25] MEDS: Miralax 17gm pkt ORAL SCH (21:00)
--- NOTE | 2017-07-25 23:20 | Pulmonology Progress Note ---
Assessment/Plan Problems: (1) Abdominal pain (2) biliary stent (3) Weakness Assessment/Plan continue npo iv fluids symptomatic treatment GI f/u Subjective ROS Limited/Unobtainable: No Constitutional: Reports: no symptoms HEENT: Repors: no symptoms Respiratory: Reports: no symptoms Allergies: Coded Allergies: No Known Allergies (Verified , 09/18/11) Objective Last 24 Hour Vital Signs Date Time Temp Pulse Resp B/P (MAP) Pulse Ox O2 Delivery O2 Flow Rate FiO2 07/25/17 19:41 97.5 89 20 110/75 98 Room Air 07/25/17 16:00 97.9 83 20 85/54 92 Room Air 07/25/17 12:00 97.5 73 20 101/61 95 Room Air 07/25/17 08:10 97.5 77 19 101/59 95 Room Air 07/25/17 04:00 98.1 68 20 103/61 92 Room Air 07/25/17 00:00 97.1 72 20 100/62 97 Room Air Intake and Output 07/25/17 07/26/17 19:00 07:00 Intake Total 825 ml Output Total 100 ml Balance 725 ml Intake Oral 0 ml IV Total 825 ml Output Urine Total 100 ml # Voids 3 General Appearance: WD/WN HEENT: normocephalic, atraumatic Respiratory/Chest: chest wall non-tender, lungs clear Breasts: no masses Cardiovascular: normal peripheral pulses, no JVD Abdomen: no organomegaly Extremities: no cyanosis Skin: no rash Neurologic/Psychiatric: no motor/sensory deficits Laboratory Tests 07/25/17 06:25: White Blood Count 7.5, Red Blood Count 3.70L, Hemoglobin 11.2L, Hematocrit 35.1L , Mean Corpuscular Volume 95, Mean Corpuscular Hemoglobin 30.1, Mean Corpuscular Hemoglobin Concent 31.8L, Red Cell Distribution Width 14.0, Platelet Count 360, Mean Platelet Volume 7.1, Neutrophils (%) (Auto) 38.8L, Lymphocytes (%) (Auto) 46.9H, Monocytes (%) (Auto) 8.3, Eosinophils (%) (Auto) 4.6H, Basophils (%) (Auto) 1.4, Activated Partial Thromboplast Time 30, Sodium Level 146H, Potassium Level 3.7, Chloride Level 106, Carbon Dioxide Level 30, Anion Gap 10, Blood Urea Nitrogen 10, Creatinine 0.7, Estimat Glomerular Filtration Rate > 60, Glucose Level 101, Calcium Level 8.5L, Total Bilirubin 0.3 , Aspartate Amino Transf (AST/SGOT) 25, Alanine Aminotransferase (ALT/SGPT) 12, Alkaline Phosphatase 47, Total Protein 8.5, Albumin 3.4L, Globulin 5.1, Albumin/ Globulin Ratio 0.6L, Amylase Level 51, Lipase 15 Current Medications Medications (Trade) Dose Ordered Sig/Zenobia Route PRN Reason Start Time Stop Time Status Last Admin Dose Admin Acetaminophen (Tylenol) 650 mg Q4H PRN ORAL fever 07/24/17 14:45 08/23/17 14:44 Al Hydroxide/Mg Hydroxide (Mylanta II) 30 ml Q6H PRN ORAL dyspepsia 07/24/17 14:45 08/23/17 14:44 Ceftriaxone Sodium 1 gm/ Dextrose 55 ml @ 110 mls/hr Q24H IVPB 07/24/17 22:30 07/31/17 22:29 07/25/17 21:48 Dextrose (Dextrose 50%) STAT PRN IV Hypoglycemia 07/24/17 14:45 08/23/17 14:44 Dextrose/Sodium Chloride 1,000 ml @ 75 mls/hr [id number] IV 07/24/17 17:40 08/23/17 17:39 07/25/17 17:39 Diphenhydramine HCl (Benadryl) 25 mg Q6H PRN ORAL Itching/Pruritis 07/24/17 14:45 08/23/17 14:44 Docusate Sodium (Colace) 100 mg TWICE A DAY ORAL 07/26/17 09:00 08/25/17 08:59 Heparin Sodium (Porcine) (Heparin 5000 units/ml) 5,000 units EVERY 12 HOURS SUBQ 07/24/17 21:00 08/23/17 20:59 07/25/17 21:50 Lactulose (Cephulac) 10 gm THREE TIMES A DAY ORAL 07/26/17 09:00 08/25/17 08:59 Lorazepam (Ativan 2mg/ml 1ml) 1 mg EVERY 4 HOURS PRN IV agitation 07/24/17 14:45 07/31/17 14:44 Metoclopramide HCl (Reglan) 10 mg EVERY 6 HOURS PRN IVP servere [email or web address] 07/24/17 14:45 08/23/17 14:44 Morphine Sulfate (Morphine Sulfate) 2 mg EVERY 4 HOURS PRN IVP severe Pain (Pain Scale 7-10) 07/24/17 14:45 07/31/17 14:44 07/25/17 08:35 Nicotine (Nicoderm) 1 patch Q24H TDERMAL 07/25/17 13:00 08/24/17 12:59 07/25/17 13:27 Nitroglycerin (Ntg) 0.4 mg Q5M X 3 DOSES PRN SL Prn Chest Pain 07/24/17 14:45 08/23/17 14:44 Ondansetron HCl (Zofran) 4 mg Q6H PRN IVP Nausea & Vomiting 07/24/17 14:45 08/23/17 14:44 Pantoprazole (Protonix) 40 mg DAILY IV 07/25/17 09:00 08/24/17 08:59 07/25/17 08:34 Polyethylene Glycol (Miralax) 17 gm BEDTIME ORAL 07/25/17 21:00 08/24/17 20:59 Polyethylene Glycol (Miralax) 17 gm HSPRN PRN ORAL Constipation 07/24/17 14:45 08/23/17 14:44 07/25/17 17:38 Promethazine HCl (Phenergan) 25 mg EVERY 8 HOURS PRN IV refractory nausea 07/24/17 14:45 08/23/17 14:44 Temazepam (Restoril) 15 mg HSPRN PRN ORAL Insomnia 07/24/17 14:45 07/31/17 14:44 07/25/17 21:48 TANGELA SCRUGGS Jul 25, 2017 23:20
[2017-07-26 00:49] VITALS: BP 104/63
[2017-07-26 04:16] VITALS: BP 121/72
[2017-07-26] MEDS: Morphine Sulfate 2mg/ml Inj IVP PRN (07:02)
[2017-07-26 07:52] LABS: BASOPHILS % (AUTO) 1.6 % (0.0-2.0); EOSINOPHILS % (AUTO) 5.5 % (0.0-3.0); LYMPHOCYTES % (AUTO) 54.1 % (20.0-45.0); MEAN CORPUSCULAR HEMOGLOBIN 30.4 PG (27.0-31.0); MEAN CORPUSCULAR HGB CONC 32.1 G/DL (32.0-36.0); MEAN CORPUSCULAR VOLUME 95 FL (80-99); MONOCYTES % (AUTO) 9.5 % (1.0-10.0); NEUTROPHILS % (AUTO) 29.4 % (45.0-75.0); PLATELET COUNT 337 K/UL (150-450); RED BLOOD COUNT 3.61 M/UL (4.20-5.40); RED CELL DISTRIBUTION WIDTH 14.1 % (11.6-14.8); WHITE BLOOD COUNT 8.7 K/UL (4.8-10.8)
[2017-07-26 08:00] VITALS: BP 98/60
[2017-07-26 08:31] LABS: ALANINE AMINOTRANSFERASE 12 U/L (3-33); ALBUMIN/GLOBULIN RATIO 0.7 (1.0-2.7); ANION GAP 10 (5-15); ASPARTATE AMINO TRANSFERASE 24 U/L (5-40); CARBON DIOXIDE 30 mEQ/L (20-30); CHLORIDE 104 mEQ/L (98-107); CREATININE 0.7 mg/dL (0.5-0.9); GLOMERULAR FILTRATION RATE > 60 mL/min (>60); POTASSIUM 4.6 mEQ/L (3.4-4.9); SODIUM 144 mEQ/L (135-145); TOTAL PROTEIN 8.4 g/dL (6.6-8.7)
[2017-07-26 08:49] LABS: HEMOLYSIS 2; IRON 46 ug/dL (37-145); TOTAL IRON BINDING CAPACITY 370 ug/dL (250-400)
[2017-07-26] MEDS: Docusate 100mg cap ORAL SCH ×2 (09:00→18:10)
[2017-07-26] MEDS: Lactulose 10gm/15ml UDC ORAL SCH ×3 (09:00→18:10)
[2017-07-26] MEDS: Pantoprazole Inj IV SCH (09:01)
[2017-07-26] MEDS: Heparin 5000 units/ml inj SUBQ SCH ×2 (09:01→20:44)
[2017-07-26] MEDS ORDERED: D5 1/2NS 1000ml IV ONE (09:43)
[2017-07-26] MEDS: D5 1/2NS 1,000 ML IV SCH ×2 (10:43→22:25)
--- NOTE | 2017-07-26 12:57 | General Progress Note ---
Assessment/Plan Problem List: (1) biliary stent (2) Abdominal pain ICD Codes: R10.9 - Unspecified abdominal pain SNOMED: [id number] Assessment/Plan good BM no elevated LFTS needs fu as out patient for stent removal Subjective ROS Limited/Unobtainable: Yes Allergies: Coded Allergies: No Known Allergies (Verified , 09/18/11) Subjective large BM no abd pain Objective Last 24 Hour Vital Signs Date Time Temp Pulse Resp B/P (MAP) Pulse Ox O2 Delivery O2 Flow Rate FiO2 07/26/17 08:00 96.4 88 16 98/60 95 Room Air 07/26/17 04:16 97.6 74 20 121/72 Room Air 07/26/17 00:49 97.0 82 20 104/63 96 Room Air 07/25/17 19:41 97.5 89 20 110/75 98 Room Air 07/25/17 16:00 97.9 83 20 85/54 92 Room Air Laboratory Tests 07/26/17 05:05: White Blood Count 8.7, Red Blood Count 3.61L, Hemoglobin 11.0L, Hematocrit 34.1L , Mean Corpuscular Volume 95, Mean Corpuscular Hemoglobin 30.4, Mean Corpuscular Hemoglobin Concent 32.1, Red Cell Distribution Width 14.1, Platelet Count 337, Mean Platelet Volume 7.0, Neutrophils (%) (Auto) 29.4L, Lymphocytes ( %) (Auto) 54.1H, Monocytes (%) (Auto) 9.5, Eosinophils (%) (Auto) 5.5H, Basophils (%) (Auto) 1.6, Sodium Level 144, Potassium Level 4.6, Chloride Level 104, Carbon Dioxide Level 30, Anion Gap 10, Blood Urea Nitrogen 10, Creatinine 0.7, Estimat Glomerular Filtration Rate > 60, Glucose Level 107H, Calcium Level 9.0, Iron Level 46, Total Iron Binding Capacity 370, Percent Iron Saturation 12L , Unsaturated Iron Binding 324, Total Bilirubin < 0.2, Aspartate Amino Transf ( AST/SGOT) 24, Alanine Aminotransferase (ALT/SGPT) 12, Alkaline Phosphatase 60, Total Protein 8.4, Albumin 3.6, Globulin 4.8, Albumin/Globulin Ratio 0.7L, Carcinoembryonic Antigen 2.1 Height (Feet): 5 Height (Inches): 1.00 Weight (Pounds): 180 General Appearance: alert EENT: normal ENT inspection Neck: supple Cardiovascular: normal rate Respiratory/Chest: decreased breath sounds Abdomen: normal bowel sounds, non tender, soft Extremities: non-tender JASMIN SHAH Jul 26, 2017 12:57
--- NOTE | 2017-07-26 13:42 | Infectious Diseases Prog Note ---
Assessment/Plan Assessment/Plan A; UTI, Likely cystitis s/p Cholecystectomy s/p biliary stent ; continue Rocephin day 4/5 Subjective ROS Limited/Unobtainable: No Constitutional: Reports: no symptoms Respiratory: Reports: no symptoms Cardiovascular: Reports: no symptoms Gastrointestinal/Abdominal: Reports: no symptoms Genitourinary: Reports: no symptoms Allergies: Coded Allergies: No Known Allergies (Verified , 09/18/11) Objective Vital Signs Last 24 Hour Vital Signs Date Time Temp Pulse Resp B/P (MAP) Pulse Ox O2 Delivery O2 Flow Rate FiO2 07/26/17 08:00 96.4 88 16 98/60 95 Room Air 07/26/17 04:16 97.6 74 20 121/72 Room Air 07/26/17 00:49 97.0 82 20 104/63 96 Room Air 07/25/17 19:41 97.5 89 20 110/75 98 Room Air 07/25/17 16:00 97.9 83 20 85/54 92 Room Air Height (Feet): 5 Height (Inches): 1.00 Weight (Pounds): 180 General Appearance: no acute distress HEENT: mucous membranes moist Respiratory/Chest: lungs clear Cardiovascular: normal rate Abdomen: soft, non tender Extremities: no edema Neurologic/Psychiatric: alert, oriented x 3, responsive Microbiology Date/Time Source Procedure Growth Status 07/24/17 15:02 Nasal Nares MRSA Culture - Final NO METHICILLIN RESISTANT STAPH AUREUS... Complete 07/25/17 06:30 Urine,Clean Catch Urine Culture - Preliminary NO GROWTH AFTER 24 HOURS Resulted 07/24/17 15:02 Rectum VRE Culture - Final NO VANCOMYCIN RESISTANT ENTEROCOCCUS ... Complete Laboratory Tests Test 07/26/17 05:05 White Blood Count 8.7 K/UL (4.8-10.8) Red Blood Count 3.61 M/UL (4.20-5.40) L Hemoglobin 11.0 G/DL (12.0-16.0) L Hematocrit 34.1 % (37.0-47.0) L Mean Corpuscular Volume 95 FL (80-99) Mean Corpuscular Hemoglobin 30.4 PG (27.0-31.0) Mean Corpuscular Hemoglobin Concent 32.1 G/DL (32.0-36.0) Red Cell Distribution Width 14.1 % (11.6-14.8) Platelet Count 337 K/UL (150-450) Mean Platelet Volume 7.0 FL (6.5-10.1) Neutrophils (%) (Auto) 29.4 % (45.0-75.0) L Lymphocytes (%) (Auto) 54.1 % (20.0-45.0) H Monocytes (%) (Auto) 9.5 % (1.0-10.0) Eosinophils (%) (Auto) 5.5 % (0.0-3.0) H Basophils (%) (Auto) 1.6 % (0.0-2.0) Sodium Level 144 mEQ/L (135-145) Potassium Level 4.6 mEQ/L (3.4-4.9) Chloride Level 104 mEQ/L (98-107) Carbon Dioxide Level 30 mEQ/L (20-30) Anion Gap 10 (5-15) Blood Urea Nitrogen 10 mg/dL (7-23) Creatinine 0.7 mg/dL (0.5-0.9) Estimat Glomerular Filtration Rate > 60 mL/min (>60) Glucose Level 107 mg/dL (74-106) H Calcium Level 9.0 mg/dL (8.6-10.2) Iron Level 46 ug/dL (37-145) Total Iron Binding Capacity 370 ug/dL (250-400) Percent Iron Saturation 12 % (15-50) L Unsaturated Iron Binding 324 ug/dL (112-346) Total Bilirubin < 0.2 mg/dL (0.0-1.2) Aspartate Amino Transf (AST/SGOT) 24 U/L (5-40) Alanine Aminotransferase (ALT/SGPT) 12 U/L (3-33) Alkaline Phosphatase 60 U/L (35-104) Total Protein 8.4 g/dL (6.6-8.7) Albumin 3.6 g/dL (3.5-5.2) Globulin 4.8 g/dL Albumin/Globulin Ratio 0.7 (1.0-2.7) L Carcinoembryonic Antigen 2.1 ng/mL Current Medications Medications (Trade) Dose Ordered Sig/Zenobia Route PRN Reason Start Time Stop Time Status Last Admin Dose Admin Acetaminophen (Tylenol) 650 mg Q4H PRN ORAL fever 07/24/17 14:45 08/23/17 14:44 Al Hydroxide/Mg Hydroxide (Mylanta II) 30 ml Q6H PRN ORAL dyspepsia 07/24/17 14:45 08/23/17 14:44 Ceftriaxone Sodium 1 gm/ Dextrose 55 ml @ 110 mls/hr Q24H IVPB 07/24/17 22:30 07/31/17 22:29 07/25/17 21:48 Dextrose (Dextrose 50%) STAT PRN IV Hypoglycemia 07/24/17 14:45 08/23/17 14:44 Dextrose/Sodium Chloride 1,000 ml @ 75 mls/hr [id number] IV 07/24/17 17:40 08/23/17 17:39 07/26/17 10:43 Diphenhydramine HCl (Benadryl) 25 mg Q6H PRN ORAL Itching/Pruritis 07/24/17 14:45 08/23/17 14:44 Docusate Sodium (Colace) 100 mg TWICE A DAY ORAL 07/26/17 09:00 08/25/17 08:59 07/26/17 09:00 Heparin Sodium (Porcine) (Heparin 5000 units/ml) 5,000 units EVERY 12 HOURS SUBQ 07/24/17 21:00 08/23/17 20:59 07/26/17 09:01 Lactulose (Cephulac) 10 gm THREE TIMES A DAY ORAL 07/26/17 09:00 08/25/17 08:59 07/26/17 09:00 Lorazepam (Ativan 2mg/ml 1ml) 1 mg EVERY 4 HOURS PRN IV agitation 07/24/17 14:45 07/31/17 14:44 Metoclopramide HCl (Reglan) 10 mg EVERY 6 HOURS PRN IVP servere nauasea 07/24/17 14:45 08/23/17 14:44 Morphine Sulfate (Morphine Sulfate) 2 mg EVERY 4 HOURS PRN IVP severe Pain (Pain Scale 7-10) 07/24/17 14:45 07/31/17 14:44 07/26/17 07:02 Nicotine (Nicoderm) 1 patch Q24H TDERMAL 07/25/17 13:00 08/24/17 12:59 07/26/17 09:03 Nitroglycerin (Ntg) 0.4 mg Q5M X 3 DOSES PRN SL Prn Chest Pain 07/24/17 14:45 08/23/17 14:44 Ondansetron HCl (Zofran) 4 mg Q6H PRN IVP Nausea & Vomiting 07/24/17 14:45 08/23/17 14:44 Pantoprazole (Protonix) 40 mg DAILY IV 07/25/17 09:00 08/24/17 08:59 07/26/17 09:01 Polyethylene Glycol (Miralax) 17 gm BEDTIME ORAL 07/25/17 21:00 08/24/17 20:59 Polyethylene Glycol (Miralax) 17 gm HSPRN PRN ORAL Constipation 07/24/17 14:45 08/23/17 14:44 07/25/17 17:38 Promethazine HCl (Phenergan) 25 mg EVERY 8 HOURS PRN IV refractory nausea 07/24/17 14:45 08/23/17 14:44 Temazepam (Restoril) 15 mg HSPRN PRN ORAL Insomnia 07/24/17 14:45 07/31/17 14:44 07/25/17 21:48 SAMANTHA VALLE Jul 26, 2017 13:42
[2017-07-26 16:09] VITALS: BP 95/62
[2017-07-26 20:00] VITALS: BP 96/67
[2017-07-26] MEDS: Miralax 17gm pkt ORAL SCH (20:44)
[2017-07-26] MEDS: cefTRIAXone 1 GM in D5W 55 ML IVPB SCH (22:25)
--- NOTE | 2017-07-26 22:51 | Pulmonology Progress Note ---
Assessment/Plan Problems: (1) Weakness (2) biliary stent (3) Abdominal pain Assessment/Plan all noted GI following advance diet Subjective ROS Limited/Unobtainable: No Constitutional: Reports: no symptoms HEENT: Repors: no symptoms Allergies: Coded Allergies: No Known Allergies (Verified , 09/18/11) Objective Last 24 Hour Vital Signs Date Time Temp Pulse Resp B/P (MAP) Pulse Ox O2 Delivery O2 Flow Rate FiO2 07/26/17 20:00 97.7 87 20 96/67 96 Room Air 07/26/17 16:09 98.1 87 16 95/62 95 Room Air 07/26/17 08:00 96.4 88 16 98/60 95 Room Air 07/26/17 04:16 97.6 74 20 121/72 Room Air 07/26/17 00:49 97.0 82 20 104/63 96 Room Air Intake and Output 07/26/17 07/27/17 19:00 07:00 # Voids 5 # Bowel Movements 5 General Appearance: WD/WN HEENT: normocephalic, atraumatic Respiratory/Chest: chest wall non-tender, lungs clear Breasts: no masses Cardiovascular: normal rate Abdomen: normal bowel sounds, soft, non tender Genitourinary: normal external genitalia Extremities: no cyanosis 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 Complete 07/25/17 06:30 Urine,Clean Catch Urine Culture - Preliminary NO GROWTH AFTER 24 HOURS Resulted 07/24/17 15:02 Rectum VRE Culture - Final NO VANCOMYCIN RESISTANT ENTEROCOCCUS ... Complete Laboratory Tests 07/26/17 05:05: White Blood Count 8.7, Red Blood Count 3.61L, Hemoglobin 11.0L, Hematocrit 34.1L , Mean Corpuscular Volume 95, Mean Corpuscular Hemoglobin 30.4, Mean Corpuscular Hemoglobin Concent 32.1, Red Cell Distribution Width 14.1, Platelet Count 337, Mean Platelet Volume 7.0, Neutrophils (%) (Auto) 29.4L, Lymphocytes ( %) (Auto) 54.1H, Monocytes (%) (Auto) 9.5, Eosinophils (%) (Auto) 5.5H, Basophils (%) (Auto) 1.6, Sodium Level 144, Potassium Level 4.6, Chloride Level 104, Carbon Dioxide Level 30, Anion Gap 10, Blood Urea Nitrogen 10, Creatinine 0.7, Estimat Glomerular Filtration Rate > 60, Glucose Level 107H, Calcium Level 9.0, Iron Level 46, Total Iron Binding Capacity 370, Percent Iron Saturation 12L , Unsaturated Iron Binding 324, Total Bilirubin < 0.2, Aspartate Amino Transf ( AST/SGOT) 24, Alanine Aminotransferase (ALT/SGPT) 12, Alkaline Phosphatase 60, Total Protein 8.4, Albumin 3.6, Globulin 4.8, Albumin/Globulin Ratio 0.7L, Carcinoembryonic Antigen 2.1 07/26/17 10:00: Stool Occult Blood [Pending] Current Medications Medications (Trade) Dose Ordered Sig/Zenobia Route PRN Reason Start Time Stop Time Status Last Admin Dose Admin Acetaminophen (Tylenol) 650 mg Q4H PRN ORAL fever 07/24/17 14:45 08/23/17 14:44 Al Hydroxide/Mg Hydroxide (Mylanta II) 30 ml Q6H PRN ORAL dyspepsia 07/24/17 14:45 08/23/17 14:44 Ceftriaxone Sodium 1 gm/ Dextrose 55 ml @ 110 mls/hr Q24H IVPB 07/24/17 22:30 07/31/17 22:29 07/26/17 22:25 Dextrose (Dextrose 50%) STAT PRN IV Hypoglycemia 07/24/17 14:45 08/23/17 14:44 Dextrose/Sodium Chloride 1,000 ml @ 75 mls/hr [id number] IV 07/24/17 17:40 08/23/17 17:39 07/26/17 22:25 Diphenhydramine HCl (Benadryl) 25 mg Q6H PRN ORAL Itching/Pruritis 07/24/17 14:45 08/23/17 14:44 Docusate Sodium (Colace) 100 mg TWICE A DAY ORAL 07/26/17 09:00 08/25/17 08:59 07/26/17 18:10 Heparin Sodium (Porcine) (Heparin 5000 units/ml) 5,000 units EVERY 12 HOURS SUBQ 07/24/17 21:00 08/23/17 20:59 07/26/17 20:44 Lactulose (Cephulac) 10 gm THREE TIMES A DAY ORAL 07/26/17 09:00 08/25/17 08:59 07/26/17 18:10 Lorazepam (Ativan 2mg/ml 1ml) 1 mg EVERY 4 HOURS PRN IV agitation 07/24/17 14:45 07/31/17 14:44 Metoclopramide HCl (Reglan) 10 mg EVERY 6 HOURS PRN IVP servere nasuzannesea 07/24/17 14:45 08/23/17 14:44 Morphine Sulfate (Morphine Sulfate) 2 mg EVERY 4 HOURS PRN IVP severe Pain (Pain Scale 7-10) 07/24/17 14:45 07/31/17 14:44 07/26/17 07:02 Nicotine (Nicoderm) 1 patch Q24H TDERMAL 07/25/17 13:00 08/24/17 12:59 07/26/17 09:03 Nitroglycerin (Ntg) 0.4 mg Q5M X 3 DOSES PRN SL Prn Chest Pain 07/24/17 14:45 08/23/17 14:44 Ondansetron HCl (Zofran) 4 mg Q6H PRN IVP Nausea & Vomiting 07/24/17 14:45 08/23/17 14:44 Pantoprazole (Protonix) 40 mg DAILY IV 07/25/17 09:00 08/24/17 08:59 07/26/17 09:01 Polyethylene Glycol (Miralax) 17 gm BEDTIME ORAL 07/25/17 21:00 08/24/17 20:59 Polyethylene Glycol (Miralax) 17 gm HSPRN PRN ORAL Constipation 07/24/17 14:45 08/23/17 14:44 07/25/17 17:38 Promethazine HCl (Phenergan) 25 mg EVERY 8 HOURS PRN IV refractory nausea 07/24/17 14:45 08/23/17 14:44 Temazepam (Restoril) 15 mg HSPRN PRN ORAL Insomnia 07/24/17 14:45 07/31/17 14:44 07/26/17 20:42 TANGELA [id number] Jul 26, 2017 22:51
[2017-07-27] VITALS: BP 108/71
[2017-07-27 04:00] VITALS: BP 117/76
[2017-07-27 06:46] LABS: BASOPHILS % (AUTO) 1.6 % (0.0-2.0); LYMPHOCYTES % (AUTO) 49.7 % (20.0-45.0); MEAN CORPUSCULAR HEMOGLOBIN 30.5 PG (27.0-31.0); MEAN CORPUSCULAR VOLUME 95 FL (80-99); MEAN PLATELET VOLUME 6.9 FL (6.5-10.1); MONOCYTES % (AUTO) 10.2 % (1.0-10.0); NEUTROPHILS % (AUTO) 32.5 % (45.0-75.0); PLATELET COUNT 382 K/UL (150-450); RED BLOOD COUNT 3.95 M/UL (4.20-5.40); RED CELL DISTRIBUTION WIDTH 14.4 % (11.6-14.8); WHITE BLOOD COUNT 8.5 K/UL (4.8-10.8)
[2017-07-27 07:20] LABS: ALANINE AMINOTRANSFERASE 18 U/L (12-78); ALBUMIN/GLOBULIN RATIO 0.6 (1.0-2.7); ANION GAP 5 (5-15); ASPARTATE AMINO TRANSFERASE 27 U/L (15-37); CALCIUM 8.5 MG/DL (8.5-10.1); CARBON DIOXIDE 29 MMOL/L (21-32); CHLORIDE 101 MMOL/L (98-107); CREATININE 0.7 MG/DL (0.55-1.30); CRP QUANT < 0.2 mg/dL (0.00-0.90); GLOMERULAR FILTRATION RATE > 60 mL/min (>60); MAGNESIUM 1.9 MG/DL (1.8-2.4); PHOSPHORUS 3.1 MG/DL (2.5-4.9); POTASSIUM 4.4 MMOL/L (3.5-5.1); SODIUM 135 MMOL/L (136-145); TOTAL PROTEIN 7.7 G/DL (6.4-8.2)
[2017-07-27 08:00] VITALS: BP 109/74
[2017-07-27] MEDS: Lactulose 10gm/15ml UDC ORAL SCH ×2 (08:13→13:35)
[2017-07-27] MEDS: Docusate 100mg cap ORAL SCH (08:13)
[2017-07-27] MEDS: Pantoprazole Inj IV SCH (08:13)
[2017-07-27] MEDS: Heparin 5000 units/ml inj SUBQ SCH (08:18)
[2017-07-27 09:35] LABS: ERYTHROCYTE SEDIMENTATION RATE 36 MM/HR (0-30)
[2017-07-27] MEDS: Morphine Sulfate 2mg/ml Inj IVP PRN (10:00)
--- NOTE | 2017-07-27 11:34 | GI Progress Note ---
Assessment/Plan Problems: (1) biliary stent (2) Weakness ICD Codes: R53.1 - Weakness SNOMED: 46143750 (3) Abdominal pain ICD Codes: R10.9 - Unspecified abdominal pain SNOMED: 12829357 Status: stable Status Narrative Discussed with Dr. Marquis. Assessment/Plan good BM no elevated LFTS needs fu as out patient for stent removal for transfer today Subjective Gastrointestinal/Abdominal: Reports: no symptoms Objective Last 24 Hour Vital Signs Date Time Temp Pulse Resp B/P (MAP) Pulse Ox O2 Delivery O2 Flow Rate FiO2 07/27/17 10:30 98.1 07/27/17 08:00 98.1 97 20 109/74 95 Room Air 07/27/17 04:00 97.5 71 20 117/76 94 Room Air 07/27/17 00:00 97.5 81 21 108/71 92 Room Air 07/26/17 20:00 97.7 87 20 96/67 96 Room Air 07/26/17 16:09 98.1 87 16 95/62 95 Room Air Laboratory Tests Test 07/27/17 04:55 White Blood Count 8.5 K/UL (4.8-10.8) Red Blood Count 3.95 M/UL (4.20-5.40) L Hemoglobin 12.0 G/DL (12.0-16.0) Hematocrit 37.7 % (37.0-47.0) Mean Corpuscular Volume 95 FL (80-99) Mean Corpuscular Hemoglobin 30.5 PG (27.0-31.0) Mean Corpuscular Hemoglobin Concent 32.0 G/DL (32.0-36.0) Red Cell Distribution Width 14.4 % (11.6-14.8) Platelet Count 382 K/UL (150-450) Mean Platelet Volume 6.9 FL (6.5-10.1) Neutrophils (%) (Auto) 32.5 % (45.0-75.0) L Lymphocytes (%) (Auto) 49.7 % (20.0-45.0) H Monocytes (%) (Auto) 10.2 % (1.0-10.0) H Eosinophils (%) (Auto) 6.0 % (0.0-3.0) H Basophils (%) (Auto) 1.6 % (0.0-2.0) Erythrocyte Sedimentation Rate 36 MM/HR (0-30) H Sodium Level 135 MMOL/L (136-145) L Potassium Level 4.4 MMOL/L (3.5-5.1) Chloride Level 101 MMOL/L (98-107) Carbon Dioxide Level 29 MMOL/L (21-32) Anion Gap 5 (5-15) Blood Urea Nitrogen 8 mg/dL (7-18) Creatinine 0.7 MG/DL (0.55-1.30) Estimat Glomerular Filtration Rate > 60 mL/min (>60) Glucose Level 110 MG/DL (74-106) H Calcium Level 8.5 MG/DL (8.5-10.1) Phosphorus Level 3.1 MG/DL (2.5-4.9) Magnesium Level 1.9 MG/DL (1.8-2.4) Total Bilirubin 0.3 MG/DL (0.2-1.0) Aspartate Amino Transf (AST/SGOT) 27 U/L (15-37) Alanine Aminotransferase (ALT/SGPT) 18 U/L (12-78) Alkaline Phosphatase 55 U/L (46-116) C-Reactive Protein, Quantitative < 0.2 mg/dL (0.00-0.90) Total Protein 7.7 G/DL (6.4-8.2) Albumin 3.0 G/DL (3.4-5.0) L Globulin 4.7 g/dL Albumin/Globulin Ratio 0.6 (1.0-2.7) L Height (Feet): 5 Height (Inches): 1.00 Weight (Pounds): 180 General Appearance: no apparent distress, alert Cardiovascular: normal rate Respiratory/Chest: normal breath sounds Abdominal Exam: normal bowel sounds, non tender, soft Extremities: normal range of motion Shanelle Colon N.P. Jul 27, 2017 11:34
[2017-07-27 12:00] VITALS: BP 108/76
[2017-07-27] MEDS: D5 1/2NS 1,000 ML IV SCH (12:20)
--- NOTE | 2017-07-27 13:13 | Infectious Diseases Prog Note ---
Assessment/Plan Assessment/Plan Abx: IV Ceftriaxone x1 07/23 Assesment: Lower abd fullnes/Dysuria - Possible UTI, although mild pyuria and neg ucx -CT abd/p: Biliary stent. Pneumobilia indicating stent patency. Mild basilar atelectasis. Moderate hiatal hernia. Atherosclerotic disease. Atrophic uterus -Abd us: Cholecystectomy. Common bile duct stent noted in the mid and distal common bile duct. Proximal common bile duct dilated measuring 1.2 cm. Pneumobilia better demonstrated by CT. -u/a WBC 5-10, nit neg, leuk +2; ucx neg Leukocytosis, mild-resolved s/p Cholecystectomy s/p biliary stent CAD, HLD, GERD, Anxiety Plan: -Today last day of IV Ceftriaxone #5 for presumed UTI -Monitor CBC/BMP, temperatures Thank you for this consultation. Will continue to follow along with you. Discussed with RN. Subjective Allergies: Coded Allergies: No Known Allergies (Verified , 09/18/11) Subjective afebrile VSS leukocytosis resolved ucx pending Objective Vital Signs Last 24 Hour Vital Signs Date Time Temp Pulse Resp B/P (MAP) Pulse Ox O2 Delivery O2 Flow Rate FiO2 07/27/17 12:00 98.2 95 20 108/76 96 07/27/17 10:30 98.1 07/27/17 08:00 98.1 97 20 109/74 95 Room Air 07/27/17 04:00 97.5 71 20 117/76 94 Room Air 07/27/17 00:00 97.5 81 21 108/71 92 Room Air 07/26/17 20:00 97.7 87 20 96/67 96 Room Air 07/26/17 16:09 98.1 87 16 95/62 95 Room Air Height (Feet): 5 Height (Inches): 1.00 Weight (Pounds): 180 Objective General Appearance: no apparent distress - However patient appears frail HEENT: no oral lesions, PERRL Neck: full range of motion, supple, Respiratory: lungs clear, normal breath sounds, no rhonchi, no respiratory distress Cardiovascular regular rate, rhythm, no edema, no gallop, no JVD, no murmur Gastrointestinal: normal bowel sounds, non tender, soft, no mass, no organomegaly, non-distended, Genitourinary: no CVA tenderness Musculoskeletal: normal inspection Neurologic: oriented x3, responsive, no focal deficits Skin: normal color, no rash, warm/dry, palpation normal Microbiology Date/Time Source Procedure Growth Status 07/24/17 15:02 Nasal Nares MRSA Culture - Final NO METHICILLIN RESISTANT STAPH AUREUS... Complete 07/25/17 06:30 Urine,Clean Catch Urine Culture - Final NO GROWTH AFTER 48 HOURS Complete 07/24/17 15:02 Rectum VRE Culture - Final NO VANCOMYCIN RESISTANT ENTEROCOCCUS ... Complete Laboratory Tests Test 07/27/17 04:55 White Blood Count 8.5 K/UL (4.8-10.8) Red Blood Count 3.95 M/UL (4.20-5.40) L Hemoglobin 12.0 G/DL (12.0-16.0) Hematocrit 37.7 % (37.0-47.0) Mean Corpuscular Volume 95 FL (80-99) Mean Corpuscular Hemoglobin 30.5 PG (27.0-31.0) Mean Corpuscular Hemoglobin Concent 32.0 G/DL (32.0-36.0) Red Cell Distribution Width 14.4 % (11.6-14.8) Platelet Count 382 K/UL (150-450) Mean Platelet Volume 6.9 FL (6.5-10.1) Neutrophils (%) (Auto) 32.5 % (45.0-75.0) L Lymphocytes (%) (Auto) 49.7 % (20.0-45.0) H Monocytes (%) (Auto) 10.2 % (1.0-10.0) H Eosinophils (%) (Auto) 6.0 % (0.0-3.0) H Basophils (%) (Auto) 1.6 % (0.0-2.0) Erythrocyte Sedimentation Rate 36 MM/HR (0-30) H Sodium Level 135 MMOL/L (136-145) L Potassium Level 4.4 MMOL/L (3.5-5.1) Chloride Level 101 MMOL/L (98-107) Carbon Dioxide Level 29 MMOL/L (21-32) Anion Gap 5 (5-15) Blood Urea Nitrogen 8 mg/dL (7-18) Creatinine 0.7 MG/DL (0.55-1.30) Estimat Glomerular Filtration Rate > 60 mL/min (>60) Glucose Level 110 MG/DL (74-106) H Calcium Level 8.5 MG/DL (8.5-10.1) Phosphorus Level 3.1 MG/DL (2.5-4.9) Magnesium Level 1.9 MG/DL (1.8-2.4) Total Bilirubin 0.3 MG/DL (0.2-1.0) Aspartate Amino Transf (AST/SGOT) 27 U/L (15-37) Alanine Aminotransferase (ALT/SGPT) 18 U/L (12-78) Alkaline Phosphatase 55 U/L (46-116) C-Reactive Protein, Quantitative < 0.2 mg/dL (0.00-0.90) Total Protein 7.7 G/DL (6.4-8.2) Albumin 3.0 G/DL (3.4-5.0) L Globulin 4.7 g/dL Albumin/Globulin Ratio 0.6 (1.0-2.7) L Current Medications Medications (Trade) Dose Ordered Sig/Zenobia Route PRN Reason Start Time Stop Time Status Last Admin Dose Admin Acetaminophen (Tylenol) 650 mg Q4H PRN ORAL fever 07/24/17 14:45 08/23/17 14:44 Al Hydroxide/Mg Hydroxide (Mylanta II) 30 ml Q6H PRN ORAL dyspepsia 07/24/17 14:45 08/23/17 14:44 Ceftriaxone Sodium 1 gm/ Dextrose 55 ml @ 110 mls/hr Q24H IVPB 07/24/17 22:30 07/31/17 22:29 07/26/17 22:25 Dextrose (Dextrose 50%) STAT PRN IV Hypoglycemia 07/24/17 14:45 08/23/17 14:44 Dextrose/Sodium Chloride 1,000 ml @ 75 mls/hr [id number] IV 07/24/17 17:40 08/23/17 17:39 07/26/17 22:25 Diphenhydramine HCl (Benadryl) 25 mg Q6H PRN ORAL Itching/Pruritis 07/24/17 14:45 08/23/17 14:44 Docusate Sodium (Colace) 100 mg TWICE A DAY ORAL 07/26/17 09:00 08/25/17 08:59 07/27/17 08:13 Heparin Sodium (Porcine) (Heparin 5000 units/ml) 5,000 units EVERY 12 HOURS SUBQ 07/24/17 21:00 08/23/17 20:59 07/27/17 08:18 Lactulose (Cephulac) 10 gm THREE TIMES A DAY ORAL 07/26/17 09:00 08/25/17 08:59 07/27/17 08:13 Lorazepam (Ativan 2mg/ml 1ml) 1 mg EVERY 4 HOURS PRN IV agitation 07/24/17 14:45 07/31/17 14:44 Metoclopramide HCl (Reglan) 10 mg EVERY 6 HOURS PRN IVP servere nauasea 07/24/17 14:45 08/23/17 14:44 Morphine Sulfate (Morphine Sulfate) 2 mg EVERY 4 HOURS PRN IVP severe Pain (Pain Scale 7-10) 07/24/17 14:45 07/31/17 14:44 07/27/17 10:00 Nicotine (Nicoderm) 1 patch DAILY TDERMAL 07/27/17 09:00 08/26/17 08:59 07/27/17 09:54 Nitroglycerin (Ntg) 0.4 mg Q5M X 3 DOSES PRN SL Prn Chest Pain 07/24/17 14:45 08/23/17 14:44 Ondansetron HCl (Zofran) 4 mg Q6H PRN IVP Nausea & Vomiting 07/24/17 14:45 08/23/17 14:44 Pantoprazole (Protonix) 40 mg DAILY IV 07/25/17 09:00 08/24/17 08:59 07/27/17 08:13 Polyethylene Glycol (Miralax) 17 gm BEDTIME ORAL 07/25/17 21:00 08/24/17 20:59 Polyethylene Glycol (Miralax) 17 gm HSPRN PRN ORAL Constipation 07/24/17 14:45 08/23/17 14:44 07/25/17 17:38 Promethazine HCl (Phenergan) 25 mg EVERY 8 HOURS PRN IV refractory nausea 07/24/17 14:45 08/23/17 14:44 Temazepam (Restoril) 15 mg HSPRN PRN ORAL Insomnia 07/24/17 14:45 07/31/17 14:44 07/26/17 20:42 Roula Acosta M.D. Jul 27, 2017 13:13
--- NOTE | 2017-07-27 19:28 | Pulmonology Progress Note ---
Assessment/Plan Problems: (1) Weakness (2) biliary stent (3) Abdominal pain Assessment/Plan all noted GI following advance diet valerie gustafson Subjective ROS Limited/Unobtainable: No Constitutional: Reports: no symptoms HEENT: Repors: no symptoms Respiratory: Reports: no symptoms Allergies: Coded Allergies: No Known Allergies (Verified , 09/18/11) Objective Last 24 Hour Vital Signs Date Time Temp Pulse Resp B/P (MAP) Pulse Ox O2 Delivery O2 Flow Rate FiO2 07/27/17 12:00 98.2 95 20 108/76 96 07/27/17 10:30 98.1 07/27/17 08:00 98.1 97 20 109/74 95 Room Air 07/27/17 04:00 97.5 71 20 117/76 94 Room Air 07/27/17 00:00 97.5 81 21 108/71 92 Room Air 07/26/17 20:00 97.7 87 20 96/67 96 Room Air Intake and Output 07/27/17 07/28/17 19:00 07:00 Intake Total 375 ml Balance 375 ml IV Total 375 ml General Appearance: WD/WN HEENT: normocephalic, atraumatic Respiratory/Chest: chest wall non-tender, lungs clear Cardiovascular: normal peripheral pulses, normal rate Genitourinary: normal external genitalia Extremities: no cyanosis Skin: no ulcers Neurologic/Psychiatric: no motor/sensory deficits Microbiology Date/Time Source Procedure Growth Status 07/25/17 06:30 Urine,Clean Catch Urine Culture - Final NO GROWTH AFTER 48 HOURS Complete Laboratory Tests 07/27/17 04:55: White Blood Count 8.5, Red Blood Count 3.95L, Hemoglobin 12.0, Hematocrit 37.7, Mean Corpuscular Volume 95, Mean Corpuscular Hemoglobin 30.5, Mean Corpuscular Hemoglobin Concent 32.0, Red Cell Distribution Width 14.4, Platelet Count 382, Mean Platelet Volume 6.9, Neutrophils (%) (Auto) 32.5L, Lymphocytes (%) (Auto) 49.7H, Monocytes (%) (Auto) 10.2H, Eosinophils (%) (Auto) 6.0H, Basophils (%) ( Auto) 1.6, Erythrocyte Sedimentation Rate 36H, Sodium Level 135L, Potassium Level 4.4, Chloride Level 101, Carbon Dioxide Level 29, Anion Gap 5, Blood Urea Nitrogen 8, Creatinine 0.7, Estimat Glomerular Filtration Rate > 60, Glucose Level 110H, Calcium Level 8.5, Phosphorus Level 3.1, Magnesium Level 1.9, Total Bilirubin 0.3, Aspartate Amino Transf (AST/SGOT) 27, Alanine Aminotransferase ( ALT/SGPT) 18, Alkaline Phosphatase 55, C-Reactive Protein, Quantitative < 0.2, Total Protein 7.7, Albumin 3.0L, Globulin 4.7, Albumin/Globulin Ratio 0.6L TANGELA SCRUGGS Jul 27, 2017 19:27
--- NOTE | 2017-07-28 14:59 | Discharge Summary ---
Discharge Summary Hospital Course Date of Admission Jul 24, 2017 at 13:09 Date of Discharge Jul 27, 2017 at 15:48 Admitting Diagnosis weakness GUY Clemens is a 61 year old female who was admitted on Jul 24, 2017 at 13: 09 for Weakness Hospital Course dc summary #[id number] Discharge Medications Continued Medications: Duloxetine Hcl* (Cymbalta*) 60 Mg Capsule.dr 60 MG ORAL DAILY, CAP Flurazepam HCl (Flurazepam HCl) 15 Mg Capsule 15 MG ORAL QHS, #30 CAP 0 Refills Metoprolol Succinate* (Toprol Xl*) 100 Mg Tab.er.24h 100 MG ORAL DAILY, TAB 0 Refills Olanzapine* (Zyprexa*) 10 Mg Tablet 10 MG ORAL DAILY, #30 TAB 0 Refills Ondansetron Odt* (Zofran Odt*) 8 Mg Tab.rapdis 8 MG ORAL Q6H PRN for Nausea & Vomiting, #30 TAB Pantoprazole* (Protonix*) 40 Mg Tablet.dr 40 MG ORAL DAILY, TAB Paroxetine Hcl* (Paxil*) 20 Mg Tablet 30 MG PO DAILY, TAB Sucralfate* (Carafate*) 1 Gm Tablet 1 GM ORAL Q8HR, TAB Discharge Condition Upon Discharge: stable Discharge Disposition Patient was discharged to assisted living Discharge Diagnoses: Discharge Instructions Discharge Instructions Special Instructions I have been assigned to complete a D/C Summary on this account. I was not involved in the patient management Gin Trivedi NP (Vanchtein) Jul 28, 2017 14:59
--- NOTE | 2017-07-29 05:24 | Discharge Summary 2 SIG ---
DATE OF ADMISSION: 07/24/2017 DATE OF DISCHARGE: 07/27/2017 REASON FOR ADMISSION: 61 years old female with biliary stent from assisted living with history of anxiety, dyspepsia, and coronary artery disease, presented with complaints of lower abdominal suprapubic fullness and heaviness as well as dysuria and frequency. The patient also reported blood in her urine. She reported generalized feeling of weakness. Denied nausea, vomiting, or diarrhea. No chest pain. No shortness of breath. Reported subjective fever. Workup in the emergency room revealed WBC -12.6. Urinalysis with evidence of pyuria and positive for leukocyte esterase and few bacteria. Lipase within normal limits. LFTs stable. EKG revealed normal sinus rhythm. CT of the abdomen and pelvis benign. The patient was admitted for further management. ADMITTING DIAGNOSES: 1. Possible sepsis. 2. Urinary tract infection. 3. Abdominal pain. 4. Status post biliary stent. HOSPITAL COURSE: The patient was admitted. The patient was kept NPO. The patient was started on IV fluids. Pain management was provided. Bowel regimen was instituted. GI and ID evaluation was requested. The patient was on empiric antibiotics for presumed urinary tract infection for three days. Status post treatment, urine culture was negative. Antibiotics stopped. The patient had no fever. Mild leukocytosis resolved. Gastrointestinal specialist seen and evaluated the patient. Per devulcanizer operator, LFTs were stable, not elevated. The patient had a good bowel movement. The patient was on GI prophylaxis. He suggested outpatient followup for stent removal. Diet was advanced, patient was able to tolerate diet. The patient was stable for discharge. FINAL DIAGNOSES: 1. Possible sepsis. 2. Urinary tract infection. 3. Abdominal pain. 4. Biliary stent. DISCHARGE MEDICATIONS: See medication reconciliation list. DISCHARGE INSTRUCTIONS: The patient was discharged back to assisted living. FOLLOWUP: Follow up with medical doctor at the facility. Follow up with GI as outpatient for stent removal. Rhoda Bowen M.D. I have been assigned to dictate discharge summary on this account and I was not involved in the patient's management. Gin Trivedi N.P. (Vanchtein) DR: KALEY JOB#: [id number] CC: KATIE
== END 2017-07-27 15:48 | disposition home or self-care (01) | DRG 720 ==
LOC: EDBD 11:51 → EMR 12:30 → 4E 13:09 → EDBEDREQ 13:50
DX: A41.9 Sepsis, unspecified organism (principal); N39.0 Urinary tract infection, site not specified; R53.1 Weakness; R10.9 Unspecified abdominal pain; I25.10 Atherosclerotic heart disease of native coronary artery without angina pectoris; E78.5 Hyperlipidemia, unspecified; K21.9 Gastro-esophageal reflux disease without esophagitis; F41.9 Anxiety disorder, unspecified; K44.9 Diaphragmatic hernia without obstruction or gangrene
CPT/HCPCS: 36415; 74176; 76700; 80053; 81003; 82150; 82270; 82378; 83540; 83550; 83690; 83735; 84100; 85025; 85651; 85730; 86140; 87081; 87086; 99285

== ENCOUNTER 2017-12-25 11:24 | Observation (INO) | payer MEDICAID ==
[~2017-12-25] VITALS: Ht 157.5 cm; Wt 78.9 kg
[2017-12-25] VITALS (7 sets, daily range): BP systolic 83–115; BP diastolic 51–79
[~2017-12-25 11:24] MED LIST: ATIVAN0.5 MG ORAL; ATORVASTATIN CA10 MG ORAL; BISACODYL5 MG ORAL; CARAFATE1 G1 ORAL; CYMBALTA60 MG ORAL; DALMANE15 MG ORAL; FENOFIBRATE150 MG PO; FOSAMAX70 MG ORAL; HYOSCYAMINE0.375 M1 ORAL; PAROXETINE HCL20 MG PO; PRILOSEC OTC20 MG ORAL; PROTONIX40 MG ORAL; TESSALON PERLE100 MG ORAL; TOPROL XL100 MG ORAL; ZOFRAN ODT8 MG ORAL; ZYPREXA10 MG ORAL
[2017-12-25] MEDS ORDERED: Sodium Chloride 500ML 500 ML IV ONE (11:25)
[2017-12-25] MEDS ORDERED: Morphine Sulfate 2mg/ml Inj IVP ONE ×2 (11:30→16:15)
[2017-12-25 12:09] LABS: BASOPHILS % (AUTO) 1.1 % (0.0-2.0); EOSINOPHILS % (AUTO) 1.8 % (0.0-3.0); HEMATOCRIT 36.7 % (37.0-47.0); HEMOGLOBIN 11.8 G/DL (12.0-16.0); LYMPHOCYTES % (AUTO) 38.7 % (20.0-45.0); MEAN CORPUSCULAR VOLUME 93 FL (80-99); MONOCYTES % (AUTO) 7.2 % (1.0-10.0); NEUTROPHILS % (AUTO) 51.2 % (45.0-75.0); PLATELET COUNT 350 K/UL (150-450); RED BLOOD COUNT 3.96 M/UL (4.20-5.40); RED CELL DISTRIBUTION WIDTH 14.1 % (11.6-14.8); WHITE BLOOD COUNT 11.3 K/UL (4.8-10.8)
[2017-12-25] MEDS ORDERED: CALCIUM600 M1 PO (12:22)
[2017-12-25 12:35] LABS: ANION GAP 2 mmol/L (5-15); BLOOD UREA NITROGEN 16 mg/dL (7-18); CALCIUM 9.2 MG/DL (8.5-10.1); CARBON DIOXIDE 33 MMOL/L (21-32); CHLORIDE 102 MMOL/L (98-107); CREATININE 0.9 MG/DL (0.55-1.30); POTASSIUM 4.1 MMOL/L (3.5-5.1); SODIUM 137 MMOL/L (136-145)
[2017-12-25 12:37] LABS: APPEARANCE,URINE CLEAR; BILIRUBIN, URINE NEGATIVE (NEGATIVE); GLUCOSE, URINE (UA) NEGATIVE (NEGATIVE); KETONES,URINE NEGATIVE (NEGATIVE); LEUKOCYTE ESTERASE ,URINE 1+ (NEGATIVE); NITRITE,URINE NEGATIVE (NEGATIVE); PH,URINE 7 (4.5-8.0); PROTEIN,URINE NEGATIVE (NEGATIVE); UROBILINOGEN,URINE NORMAL MG/DL (0.0-1.0)
[2017-12-25 12:38] LABS: COLOR,URINE YELLOW
--- NOTE | 2017-12-25 12:40 | Emergency Room Report ---
History of Present Illness General Chief Complaint: Abdominal Pain Source: Patient, EMS Present Illness HPI Patient presents with complaints of mid abdominal pain Patient reports of the pain has been ongoing for the past 4-5 days She was previously at another facility and reports having a procedure done and a stent put in patient has a follow-up next week for colonoscopy and endoscopy However has had increased vomiting epigastric pain and presents by paramedics denies any fevers Denies any chest pain or shortness of breath denies any dysuria or frequency Allergies: Coded Allergies: No Known Allergies (Verified , 09/18/11) Patient History Past Medical History: see triage record Pertinent Family History: none Reviewed Nursing Documentation: PMH: Agreed, PSxH: Agreed Nursing Documentation-PMH Past Medical History: No History, Except For Hx Cardiac Problems: No Hx Hypertension: Yes Hx Cancer: No Hx Gastrointestinal Problems: No Hx Neurological Problems: Yes - depression. Hx Cerebrovascular Accident: Yes - 09/2016 Review of Systems All Other Systems: negative except mentioned in HPI Physical Exam Vital Signs Date Time Temp Pulse Resp B/P (MAP) Pulse Ox O2 Delivery O2 Flow Rate FiO2 12/25/17 11:16 98.3 67 18 96/68 90 Room Air 98.2 Sp02 EP Interpretation: reviewed, normal General Appearance: well appearing, no apparent distress Head: normocephalic, atraumatic Eyes: bilateral eye PERRL, bilateral eye EOMI ENT: hearing grossly normal, normal pharynx, TMs + canals normal, uvula midline Neck: full range of motion, supple, no meningismus, no bony tend Respiratory: lungs clear, normal breath sounds, no rhonchi, no respiratory distress, no retraction, no accessory muscle use Cardiovascular #1: normal peripheral pulses, regular rate, rhythm, no edema, no gallop, no JVD, no murmur Gastrointestinal: normal bowel sounds, soft, no mass, no organomegaly, non- distended, no guarding, no hernia, no pulsatile mass, no rebound, tenderness - Epigastric area Genitourinary: no CVA tenderness Musculoskeletal: normal inspection Neurologic: oriented x3, responsive, home care companion III-XII nml as tested, motor strength/ tone normal, sensory intact Psychiatric: mood/affect normal Skin: normal color, no rash, warm/dry, palpation normal Lymphatic: normal inspection, no adenopathy Medical Decision Making Diagnostic Impression: Primary Impression: Vomiting Additional Impressions: Abdominal pain Pneumobilia ER Course With the history exam and presentation, multiple differentials considered, including but not limited to appendicitis, gastritis, cholecystitis, diverticulitis Patient's CT shows questionable evidence of possible pneumobilia Patient did give recent history of instrumentation Otherwise some evidence of possible enteritis as well Blood work otherwise at baseline levels given the location of the pain and the discomfort patient will require admission GI consultation Labs Test 12/25/17 11:55 12/25/17 12:05 White Blood Count 11.3 K/UL (4.8-10.8) Red Blood Count 3.96 M/UL (4.20-5.40) Hemoglobin 11.8 G/DL (12.0-16.0) Hematocrit 36.7 % (37.0-47.0) Mean Corpuscular Volume 93 FL (80-99) Mean Corpuscular Hemoglobin 29.7 PG (27.0-31.0) Mean Corpuscular Hemoglobin Concent 32.1 G/DL (32.0-36.0) Red Cell Distribution Width 14.1 % (11.6-14.8) Platelet Count 350 K/UL (150-450) Mean Platelet Volume 7.9 FL (6.5-10.1) Neutrophils (%) (Auto) 51.2 % (45.0-75.0) Lymphocytes (%) (Auto) 38.7 % (20.0-45.0) Monocytes (%) (Auto) 7.2 % (1.0-10.0) Eosinophils (%) (Auto) 1.8 % (0.0-3.0) Basophils (%) (Auto) 1.1 % (0.0-2.0) Sodium Level 137 MMOL/L (136-145) Potassium Level 4.1 MMOL/L (3.5-5.1) Chloride Level 102 MMOL/L (98-107) Carbon Dioxide Level 33 MMOL/L (21-32) Anion Gap 2 mmol/L (5-15) Blood Urea Nitrogen 16 mg/dL (7-18) Creatinine 0.9 MG/DL (0.55-1.30) Estimat Glomerular Filtration Rate > 60 mL/min (>60) Glucose Level 86 MG/DL (74-106) Calcium Level 9.2 MG/DL (8.5-10.1) Total Bilirubin 0.3 MG/DL (0.2-1.0) Aspartate Amino Transf (AST/SGOT) 26 U/L (15-37) Alanine Aminotransferase (ALT/SGPT) 23 U/L (12-78) Alkaline Phosphatase 33 U/L (46-116) Total Protein 7.7 G/DL (6.4-8.2) Albumin 3.4 G/DL (3.4-5.0) Globulin 4.3 g/dL Albumin/Globulin Ratio 0.8 (1.0-2.7) Lipase 99 U/L (73-393) Urine Color Yellow Urine Appearance Clear Urine pH 7 (4.5-8.0) Urine Specific Wendell 1.005 (1.005-1.035) Urine Protein Negative (NEGATIVE) Urine Glucose (UA) Negative (NEGATIVE) Urine Ketones Negative (NEGATIVE) Urine Occult Blood 1+ (NEGATIVE) Urine Nitrite Negative (NEGATIVE) Urine Bilirubin Negative (NEGATIVE) Urine Urobilinogen Normal MG/DL (0.0-1.0) Urine Leukocyte Esterase 1+ (NEGATIVE) Urine RBC 0-2 /HPF (0 - 2) Urine WBC 2-4 /HPF (0 - 2) Urine Squamous Epithelial Cells Few /LPF (NONE/OCC) Urine Bacteria Few /HPF (NONE) Rhythm Strip Diag. Results EP Interpretation: yes Rate: 88 Rhythm: NSR, no PVC's, no ectopy CT/MRI/US Diagnostic Results CT/MRI/US Diagnostic Results : Impression CT abdomen pelvis: Impression: Fluid-filled colon and small bowel loops, of uncertain significance, could indicate mild enteritis changes or diarrhea No acute process otherwise Previously demonstrated biliary stent has been removed. Nonetheless, there is pneumobilia, indicating likely prior sphincterotomy. There is dilatation of the extrahepatic bile ducts, but this is similar to the previous exam and presence of pneumobilia indicates that they are likely patent. Nonetheless, correlation with liver function tests is recommended, with consideration for an MRCP if clinically indicated Evidence of prior cholecystectomy 2 small nodules at the right lung base. No further follow-up is necessary if there is no risk factors for lung carcinoma. There are significant risk factors, then follow-up CT at 612 months is recommended Last Vital Signs Date Time Temp Pulse Resp B/P (MAP) Pulse Ox O2 Delivery O2 Flow Rate FiO2 12/25/17 12:29 98.3 39/18 11:30 70 16 115/72 98 Room Air Status: improved Disposition: Condition: Improved Referrals: NON PHYSICIAN (PCP) GABRIELA GAYLE D.O. Dec 25, 2017 12:40
[2017-12-25 12:41] LABS: ALANINE AMINOTRANSFERASE 23 U/L (12-78); ALBUMIN 3.4 G/DL (3.4-5.0); ALBUMIN/GLOBULIN RATIO 0.8 (1.0-2.7); ALKALINE PHOSPHATASE 33 U/L (46-116); ASPARTATE AMINO TRANSFERASE 26 U/L (15-37); BILIRUBIN,TOTAL 0.3 MG/DL (0.2-1.0)
--- NOTE | 2017-12-25 14:02 | Diagnostic Imaging Report ---
Clinical Indication: Abdominal pain x2 days Technique: No oral contrast utilized, per emergency room physician request IV administration nonionic contrast. Venous phase spiral acquisition obtained through the abdomen and pelvis. Multiplanar reconstructions were generated. Total dose length product 916.09 mGycm. CTDIvol(s) 17.49 mGy. Dose reduction achieved using automated exposure control Comparison: Contrast abdomen and pelvis CT 07/24/2017 Findings: Lack of enteric contrast limits assessment of the GI tract. The appendix is not definitely demonstrated. However, no findings to suggest acute appendicitis are evident. The colon is diffusely fluid-filled. Some small bowel loops are fluid-filled as well. No ericka small bowel distention. No colon or small bowel wall thickening. Again demonstrated is a moderate-sized hiatal hernia. The remainder of the stomach and the duodenum are unremarkable. No free or loculated intraperitoneal air or fluid is evident. There is pneumobilia. Previously demonstrated biliary stent is no longer evident. The common bile duct is dilated, measuring 14 mm diameter. There is also mild central intrahepatic biliary ductal dilatation. The gallbladder is surgically absent. The liver, pancreas, spleen, adrenals, kidneys are all unremarkable. No pelvic mass or adenopathy. No retroperitoneal or mesenteric mass or adenopathy. The included lung bases demonstrate 2 small 3 to 4 mm nodules at the right lung base, image 4 and 5 of series 7, not clearly evident previously. There are also some dependent posterior atelectatic changes. The bones demonstrate mild degenerative spondylosis changes. Impression: Fluid-filled colon and small bowel loops, of uncertain significance, could indicate mild enteritis changes or diarrhea No acute process otherwise Previously demonstrated biliary stent has been removed. Nonetheless, there is pneumobilia, indicating likely prior sphincterotomy. There is dilatation of the extrahepatic bile ducts, but this is similar to the previous exam and presence of pneumobilia indicates that they are likely patent. Nonetheless, correlation with liver function tests is recommended, with consideration for an MRCP if clinically indicated Evidence of prior cholecystectomy 2 small nodules at the right lung base. No further follow-up is necessary if there is no risk factors for lung carcinoma. There are significant risk factors, then follow-up CT at [address] is [address] scanner at [facility] is accredited by the [employer] and the scans are performed using protocols designed to limit radiation exposure to as low as reasonably achievable to attain images of sufficient resolution adequate for diagnostic evaluation.
[2017-12-25] MEDS ORDERED: HYDROmorphone 1mg/ml Carpuject IVP PRN (22:30)
[2017-12-26] VITALS: BP 85/56
[2017-12-26 04:30] VITALS: BP 80/50
[2017-12-26] MEDS ORDERED: NS 275ml ONE (06:12)
[2017-12-26] MEDS ORDERED: Tubing IV Secondary IV ONE (06:12)
[2017-12-26] MEDS ORDERED: Heparin 5000 units/ml inj SUBQ SCH (09:00)
--- NOTE | 2017-12-26 23:15 | History and Physical Report ---
DATE OF ADMISSION: 12/25/2017 NOTE: POOR AUDIO HISTORY OF PRESENT ILLNESS: This is a 62-year-old female, who came to the hospital yesterday with complaints of abdominal pain. The patient has a previous history of abdominal problems and has had a procedure and had biliary stent in place. She had increased epigastric pain, nausea, and emesis and came to the hospital for management. The patient was seen and worked up. Initially admitted to the hospital transiently, but is now being transferred to [facility] for insurance reasons. PAST MEDICAL HISTORY: Discussed above. She has a history of previous cholecystectomy as well as biliary stent with history of hypertension as well and depression, previous CVA. HOME MEDICATIONS: Her list of home medications reviewed and reconciled on the chart. REVIEW OF SYSTEMS: The patient denies any headache, hematemesis, melena, or hematochezia. PHYSICAL EXAMINATION: GENERAL: . VITAL SIGNS: Blood pressure 110/70, heart rate , respiratory rate , she is afebrile, and O2 saturation 96% on room air. HEENT: Unremarkable. LUNGS: Clear breath sounds. ABDOMEN: Soft. There is mild right discomfort. LABORATORY AND DIAGNOSTIC DATA: Normal CBC and BMP with elevation of white count at 11.3 and creatinine of 0.9. Urinalysis negative. Imaging studies show evidence of pneumobilia, previous cholecystectomy, and small lung nodules. IMPRESSION: 1. Abdominal pain. 2. Previous cholecystectomy. 3. Previous biliary stent. 4. Hypertension. 5. Depression. DISCUSSION: The patient is stable for transfer. I have contacted the on-call major case detective as well as the accepting physician. The patient will be transferred to [facility]. Ted Mcintosh M.D. DR: ALEXIA JOB#: [id number] CC:
--- NOTE | 2017-12-27 16:32 | Cardiology Report ---
APPROVED REPORT EKG Measurement Heart [id number] PA [id number] Normal sinus rhythm Low voltage QRS Borderline ECG
== END 2017-12-26 06:13 | disposition short-term general hospital (02) ==
LOC: EDBD 11:24 → EMR 12:00 → INTOOBSV 16:23 → 4E 16:23 → EDBEDREQ 17:35 → EDBEDREQSVC 12-26 06:54
DX: R10.9 Unspecified abdominal pain (principal); R11.10 Vomiting, unspecified; I10 Essential (primary) hypertension; K83.8 Other specified diseases of biliary tract; R91.8 Other nonspecific abnormal finding of lung field; F32.9 Major depressive disorder, single episode, unspecified; Z86.73 Personal history of transient ischemic attack (TIA), and cerebral infarction without residual deficits; Z90.49 Acquired absence of other specified parts of digestive tract
CPT/HCPCS: 36415; 74177; 80053; 81003; 83690; 85025; 87081; 93005; 96360; 96361; 96523; 99285; J2270; J2405; J7040; Q9967; G0378

== ENCOUNTER 2018-03-13 23:21 | Emergency (ER) | payer MEDICAID, MEDICARE ==
[~2018-03-13] VITALS: Ht 154.9 cm; Wt 83.9 kg
[~2018-03-13 23:21] MED LIST changes: +CALCIUM600 M1 PO
[2018-03-13] MEDS ORDERED: ZANTAC150 MG ORAL (23:27)
--- NOTE | 2018-03-13 23:39 | Emergency Room Report ---
History of Present Illness General Chief Complaint: Lower Extremity Injury Source: Patient Present Illness HPI Is a 62-year-old female with no significant past medical history. She presents with left foot pain. Few days ago, a wheelchair roll over her left foot. Since then his been tenderness and little edema. She has previous bunion surgery in that foot. No other complaint. Pain is 7 out of 10. Worse with walking. Better with Tylenol. Allergies: Coded Allergies: No Known Allergies (Verified , 09/18/11) Patient History Past Medical History: see triage record, old chart reviewed Past Surgical History: other Pertinent Family History: none Social History: Denies: smoking Now: No Immunizations: other Reviewed Nursing Documentation: PMH: Agreed; PSxH: Agreed Nursing Documentation-PMH Hx Cardiac Problems: Yes - CVA 2015 Hx Hypertension: Yes Hx Cancer: No Hx Gastrointestinal Problems: No History Of Psychiatric Problem: Yes - depression Hx Neurological Problems: Yes - depression. Hx Cerebrovascular Accident: Yes - 09/2016 Review of Systems Eye: Denies: eye pain, blurred vision ENT: Denies: ear pain, nose congestion, throat swelling Respiratory: Denies: cough, shortness of breath Cardiovascular: Denies: chest pain, palpitations Gastrointestinal: Denies: abdominal pain, diarrhea, nausea, vomiting Musculoskeletal: Reports: joint pain; Denies: back pain Skin: Denies: rash Neurological: Denies: headache, numbness Endocrine: Denies: increased thirst, increased urine Hematologic/Lymphatic: Denies: easy bruising All Other Systems: negative except mentioned in HPI Physical Exam Vital Signs Date Time Temp Pulse Resp B/P (MAP) Pulse Ox O2 Delivery O2 Flow Rate FiO2 03/13/18 23:22 97.9 81 14 106/79 95 Room Air 97.9 vitals normal Sp02 EP Interpretation: reviewed, normal General Appearance: well appearing, no apparent distress, alert Head: normocephalic, atraumatic Eyes: bilateral eye PERRL, bilateral eye EOMI ENT: hearing grossly normal, normal pharynx Neck: full range of motion, supple, no meningismus Respiratory: chest non-tender, lungs clear, normal breath sounds Cardiovascular #1: regular rate, rhythm, no murmur Gastrointestinal: normal bowel sounds, non tender, no mass, no organomegaly, no bruit, non-distended Musculoskeletal: back normal, gait/station normal, normal range of motion, other - Left foot: There small abrasion at the base of the great toe. There is some edema to the dorsum of the foot. No bony tenderness. Ankle is nontender. Pulses normal. Psychiatric: mood/affect normal Skin: warm/dry Medical Decision Making Diagnostic Impression: Primary Impression: Contusion of foot Qualified Codes: S90.32XA - Contusion of left foot, initial encounter ER Course Patient presents with contusion of her foot. She has previous surgery in that area so the subluxation and the dislocation of the second and third metatarsal bone are chronic. No evidence of fracture. Other X-Ray Diagnostic Results Other X-Ray Diagnostic Results : X-Ray ordered: Left foot x-rays # of Views/Limited Vs Complete: 3 View Indication: Pain Interpretation: no soft tissue swelling, no fractures, other - Postsurgical changes. Impression: Other - Postsurgical changes Electronically Signed by: Will Colon MD Last Vital Signs Date Time Temp Pulse Resp B/P (MAP) Pulse Ox O2 Delivery O2 Flow Rate FiO2 03/13/18 23:22 97.9 81 14 106/79 95 Room Air 97.9 Status: improved Disposition: HOME, SELF-CARE Condition: Stable Scripts Hydrocodone/Acetaminophen 5-325* (HYDROCODONE/ACETAMINOPHEN 5-325*) 1 Each Tablet 1 TAB ORAL Q6H PRN for For Pain, #15 TAB 0 Refills Prov: WILL COLON M.D. 03/14/18 Patient Instructions: Foot Contusion Additional Instructions: Follow-up with your doctor in 7 days. Return if worse. WILL COLON M.D. March 13, 2018 23:39
[2018-03-13] MEDS ORDERED: Tylenol #3 tab (300mg/30mg) ORAL ONE (23:45)
--- NOTE | 2018-03-14 00:06 | Diagnostic Imaging Report ---
EXAM: XR Left Foot Complete, 3 or More Views CLINICAL HISTORY: TRAUMA TECHNIQUE: Frontal, lateral and oblique views of the left foot. COMPARISON: No relevant prior studies available. FINDINGS: Bones/joints: Dislocation at the third metatarsal phalangeal joint, subluxation at the second metatarsal-phalangeal joint, and subluxation at the second proximal interphalangeal joint. Hardware at the distal first metatarsal is intact. No acute fracture. Soft tissues: Unremarkable. No radiopaque foreign body. IMPRESSION: Dislocation at the third metatarsal phalangeal joint, subluxation at the second metatarsal-phalangeal joint, and subluxation at the second proximal interphalangeal joint. These are age-indeterminate.
[2018-03-14] MEDS ORDERED: HYDROCODON-ACE1 EA15 ORAL (00:22)
[2018-03-14 00:27] VITALS: BP 106/79
== END 2018-03-14 00:27 | disposition home or self-care (01) ==
LOC: EMR 23:57
DX: S90.32XA Contusion of left foot, initial encounter (principal); W22.8XXA Striking against or struck by other objects, initial encounter; Y92.9 Unspecified place or not applicable; I10 Essential (primary) hypertension; Z86.73 Personal history of transient ischemic attack (TIA), and cerebral infarction without residual deficits; F32.9 Major depressive disorder, single episode, unspecified
CPT/HCPCS: 99283

== ENCOUNTER 2018-12-04 14:16 | Emergency (ER) | payer MEDICARE, MEDICAID ==
[~2018-12-04] VITALS: Ht 154.9 cm; Wt 74.4 kg
[~2018-12-04 14:16] MED LIST changes: +HYDROCODON-ACE1 EA15 ORAL; +ZANTAC150 MG ORAL
[2018-12-04] MEDS ORDERED: PEPCID AC10 MG PO (14:34)
--- NOTE | 2018-12-04 14:35 | NUR ---
ED Nurse Note: Pt walked in c/o abd pain, n/v/d x 2days. Noted tenderness on upper abd area. no active n/v but noted diarrhea. PT AA&ox4, gcs=15, Farsi speaking, skin warm and dry, pale, resp even and unlabored on RA, abd soft nondistended but tender, active BS, ambulates w/ steady slow gait, noted edema BLE, nonpitting, NSR on library monitor. will cont monitor. warm blanket provided for comfort.
[2018-12-04] MEDS ORDERED: Isovue-300 100ml vial INJ PRN (14:45)
[2018-12-04] MEDS ORDERED: Morphine Sulfate 4mg/ml Inj (IV/IM USE ONLY) IVP ONE (14:45)
--- NOTE | 2018-12-04 14:46 | Emergency Room Report ---
History of Present Illness General Chief Complaint: Abdominal Pain Source: Patient Present Illness [facility] This presents with abdominal pain and vomiting with diarrhea. She's moved her bowels 10 times since last night. The abdominal pain is mid abdomen and last night was 8/10 but now is 5/10 and crampy. She's not passed any blood. She doesn't feel she has to vomit at this time but she feels dehydrated. She took no medication for this problem. A few weeks ago she was taking antibiotics for urinary tract infection. Patient has a history of hypertension. She denies diabetes. The patient is a smoker. No fevers, chills, chest pain, palpitations, dysuria, shortness of breath, depression, visual changes, headache. Allergies: Coded Allergies: No Known Allergies (Verified , 09/18/11) Patient History Past Medical History: see triage record Social History: Reports: smoking; Denies: alcohol use, drug use Social History Narrative : 3 Para: 3 Reviewed Nursing Documentation: PMH: Agreed; PSxH: Agreed Nursing Documentation-PMH Past Medical History: No History, Except For Hx Cardiac Problems: Yes - CVA 2016 Hx Hypertension: Yes Hx Cancer: No Hx Gastrointestinal Problems: No Hx Neurological Problems: Yes - depression. Hx Cerebrovascular Accident: Yes - 09/2016 Review of Systems All Other Systems: negative except mentioned in HPI Physical Exam Vital Signs Date Time Temp Pulse Resp B/P (MAP) Pulse Ox O2 Delivery O2 Flow Rate FiO2 12/04/18 14:30 98.2 78 18 91/57 96 Room Air Sp02 EP Interpretation: reviewed, normal General Appearance: well appearing, no apparent distress, GCS 15 Head: normocephalic Eyes: bilateral eye normal inspection, bilateral eye PERRL ENT: moist mucus membranes Neck: supple Respiratory: lungs clear, normal breath sounds Cardiovascular #1: regular rate, rhythm Cardiovascular #2: 2+ radial (R) Gastrointestinal: normal inspection, normal bowel sounds, no mass, non- distended, no guarding, no rebound, tenderness - Midabdomen Genitourinary: no CVA tenderness Musculoskeletal: back normal, gait/station normal, normal range of motion Neurologic: alert, oriented x3, grossly normal Psychiatric: mood/affect normal Skin: normal inspection, warm/dry Medical Decision Making Diagnostic Impression: Primary Impression: Colitis Additional Impressions: Pneumobilia UTI (urinary tract infection) Qualified Codes: N39.0 - Urinary tract infection, site not specified; R31.9 - Hematuria, unspecified ER Course The patient presents with abdominal pain vomiting and diarrhea after taking antibiotics for urinary tract infection. Differential includes gastroenteritis , C. difficile colitis, diverticulitis, pancreatic otitis amongst others. The patient will be evaluated with EKG, chest x-ray, CT of the abdomen and pelvis with contrast, labs. The patient will receive IV hydration, Zofran and morphine. EKG without injury. Chest x-ray unremarkable. White count 15,000. Mild pyuria. CT abdomen and pelvis with sigmoid and rectal inflammation and stranding. In addition there is pneumobilia. Cefepime and metronidazole started here. Patient still with a soft abdomen and improved. She wants to eat at this time but is kept nothing by mouth. Discussed with Dr. Maravilla who accepts the patient at [facility]. Discussed with Dr. Pedraza who accepts patient at [facility]. Sats decreased. Patient NAD. O2 started. BP 110. Additional NS bolus. Still slight RUQ pain, no rebound. Laboratory Tests Test 12/04/18 14:30 12/04/18 14:50 White Blood Count 15.0 K/UL (4.8-10.8) H Red Blood Count 3.07 M/UL (4.20-5.40) L Hemoglobin 9.6 G/DL (12.0-16.0) L Hematocrit 28.9 % (37.0-47.0) L Mean Corpuscular Volume 94 FL (80-99) Mean Corpuscular Hemoglobin 31.3 PG (27.0-31.0) H Mean Corpuscular Hemoglobin Concent 33.2 G/DL (32.0-36.0) Red Cell Distribution Width 13.1 % (11.6-14.8) Platelet Count 299 K/UL (150-450) Mean Platelet Volume 6.9 FL (6.5-10.1) Neutrophils (%) (Auto) 58.7 % (45.0-75.0) Lymphocytes (%) (Auto) 31.5 % (20.0-45.0) Monocytes (%) (Auto) 7.6 % (1.0-10.0) Eosinophils (%) (Auto) 1.1 % (0.0-3.0) Basophils (%) (Auto) 1.1 % (0.0-2.0) Prothrombin Time 10.6 SEC (9.30-11.50) Prothrombin Time INR 1.0 (0.9-1.1) PTT 33 SEC (23-33) Urine Color Yellow Urine Appearance Slightly cloudy Urine pH 6 (4.5-8.0) Urine Specific [place] 1.010 (1.005-1.035) Urine Protein 2+ (NEGATIVE) H Urine Glucose (UA) Negative (NEGATIVE) Urine Ketones Negative (NEGATIVE) Urine Blood 1+ (NEGATIVE) H Urine Nitrite Negative (NEGATIVE) Urine Bilirubin Negative (NEGATIVE) Urine Urobilinogen Normal MG/DL (0.0-1.0) Urine Leukocyte Esterase 1+ (NEGATIVE) H Urine RBC 0-2 /HPF (0 - 2) Urine WBC 10-15 /HPF (0 - 2) H Urine Squamous Epithelial Cells Moderate /LPF (NONE/OCC) H Urine Amorphous Sediment Moderate /LPF (NONE) H Urine Bacteria Moderate /HPF (NONE) H Urine Fine Granular Casts 2-4 /LPF (NONE) H Sodium Level 137 MMOL/L (136-145) Potassium Level 4.0 MMOL/L (3.5-5.1) Chloride Level 102 MMOL/L (98-107) Carbon Dioxide Level 27 MMOL/L (21-32) Anion Gap 8 mmol/L (5-15) Blood Urea Nitrogen 13 mg/dL (7-18) Creatinine 1.2 MG/DL (0.55-1.30) Estimate Glomerular Filtration Rate 45.1 mL/min (>60) Glucose Level 95 MG/DL (74-106) Calcium Level 8.2 MG/DL (8.5-10.1) L Total Bilirubin 0.3 MG/DL (0.2-1.0) Aspartate Amino Transferase (AST) 24 U/L (15-37) Alanine Aminotransferase (ALT) 17 U/L (12-78) Alkaline Phosphatase 44 U/L (46-116) L Troponin I 0.017 ng/mL (0.000-0.056) Total Protein 7.2 G/DL (6.4-8.2) Albumin 3.1 G/DL (3.4-5.0) L Globulin 4.1 g/dL Albumin/Globulin Ratio 0.8 (1.0-2.7) L Lipase 77 U/L (73-393) EKG Diagnostic Results Rate: normal Rhythm: NSR ST Segments: no acute changes Rhythm Strip Diag. Results EP Interpretation: yes Rhythm: NSR, no PVC's, no ectopy Chest X-Ray Diagnostic Results Chest X-Ray Diagnostic Results : Chest X-Ray Ordered: Yes # of Views/Limited/Complete: 1 View Indication: Other EP Interpretation: Yes Interpretation: no consolidation, no effusion, no pneumothorax, other - Borderline cardiomegaly Impression: Other Electronically Signed by: Electronically signed by Navdeep Aden MD CT/MRI/US Diagnostic Results CT/MRI/US Diagnostic Results : Imaging Test Ordered: Abdomen/pelvis Impression Marked bowel wall thickening with mucosal hyperenhancement and adjacent stranding seen within the rectum suggesting nonspecific inflammatory infectious proctitis. Mild intra-and extrahepatic bile duct dilatation with minimal pneumobilia most likely second very to prior cholecystectomy or instrumentation. There is high density material within the distal common bile duct which suggest sludge or stone Last Vital Signs Date Time Temp Pulse Resp B/P (MAP) Pulse Ox O2 Delivery O2 Flow Rate FiO2 12/04/18 23:07 98.2 73 18 106/66 98 Room Air Status: improved Disposition: [facility]FER [facility] Condition: Serious Navdeep Aden MD Dec 04, 2018 14:46
[2018-12-04 14:50] VITALS: BP 94/57
--- NOTE | 2018-12-04 15:05 | NUR ---
ED Nurse Note: PT STARTED DRINKING REDICAT. RADIOLOGY NOTIFIED.
[2018-12-04 15:31] LABS: BASOPHILS % (AUTO) 1.1 % (0.0-2.0); EOSINOPHILS % (AUTO) 1.1 % (0.0-3.0); HEMATOCRIT 28.9 % (37.0-47.0); HEMOGLOBIN 9.6 G/DL (12.0-16.0); LYMPHOCYTES % (AUTO) 31.5 % (20.0-45.0); MEAN CORPUSCULAR VOLUME 94 FL (80-99); MONOCYTES % (AUTO) 7.6 % (1.0-10.0); NEUTROPHILS % (AUTO) 58.7 % (45.0-75.0); PLATELET COUNT 299 K/UL (150-450); RED BLOOD COUNT 3.07 M/UL (4.20-5.40); RED CELL DISTRIBUTION WIDTH 13.1 % (11.6-14.8)
[2018-12-04 15:33] LABS: BILIRUBIN, URINE NEGATIVE (NEGATIVE); GLUCOSE, URINE (UA) NEGATIVE (NEGATIVE); KETONES,URINE NEGATIVE (NEGATIVE); LEUKOCYTE ESTERASE ,URINE 1+ (NEGATIVE); NITRITE,URINE NEGATIVE (NEGATIVE); PH,URINE 6 (4.5-8.0); PROTEIN,URINE 2+ (NEGATIVE); UROBILINOGEN,URINE NORMAL MG/DL (0.0-1.0)
[2018-12-04 15:38] LABS: ANION GAP 8 mmol/L (5-15); BLOOD UREA NITROGEN 13 mg/dL (7-18); CALCIUM 8.2 MG/DL (8.5-10.1); CARBON DIOXIDE 27 MMOL/L (21-32); CHLORIDE 102 MMOL/L (98-107); CREATININE 1.2 MG/DL (0.55-1.30); SODIUM 137 MMOL/L (136-145)
[2018-12-04 15:39] LABS: APPEARANCE,URINE SLIGHTLY CLOUDY; COLOR,URINE YELLOW
[2018-12-04 15:43] LABS: ALANINE AMINOTRANSFERASE 17 U/L (12-78); ALBUMIN 3.1 G/DL (3.4-5.0); ALBUMIN/GLOBULIN RATIO 0.8 (1.0-2.7); ALKALINE PHOSPHATASE 44 U/L (46-116); ASPARTATE AMINO TRANSFERASE 24 U/L (15-37); BILIRUBIN,TOTAL 0.3 MG/DL (0.2-1.0)
--- NOTE | 2018-12-04 16:22 | Diagnostic Imaging Report ---
EXAM: XR Chest, 1 View CLINICAL HISTORY: ABD PAIN TECHNIQUE: Frontal view of the chest. COMPARISON: No relevant prior studies available. FINDINGS: Lungs: Mildly increased interstitial markings. The lungs are otherwise clear without focal consolidation. Pleural space: Unremarkable. The costophrenic angles are sharp. No visible pneumothorax. Heart: Unremarkable. No cardiomegaly. Mediastinum: Unremarkable. Bones/joints: Unremarkable. Tubes, lines and devices: EKG leads overlie the thorax. IMPRESSION: Mildly increased interstitial markings. This is nonspecific but may suggest mild pulmonary vascular congestion or a mild interstitial pneumonitis. No focal consolidation.
--- NOTE | 2018-12-04 16:45 | NUR ---
ED Nurse Note: pt off to CT, signed consent.
--- NOTE | 2018-12-04 17:09 | NUR ---
ED Nurse Note: pt back from CT.
--- NOTE | 2018-12-04 17:23 | Diagnostic Imaging Report ---
EXAM: CT Abdomen and Pelvis With Intravenous Contrast CLINICAL HISTORY: ABD PAIN TECHNIQUE: Axial computed tomography images of the abdomen and pelvis with intravenous contrast. CTDI is 0.15, 17.73 mGy and DLP is 871 mGy-cm. One or more of the following dose reduction techniques were used: automated exposure control, adjustment of the mA and/or kV according to patient size, use of iterative reconstruction technique. COMPARISON: CT abdomen and pelvis dated 12/25/2017 FINDINGS: Lung bases: Dependent atelectasis. Mediastinum: Large hiatal hernia. ABDOMEN: Liver: Unremarkable. Gallbladder and bile ducts: Mild intra-and extra hepatic bile duct dilatation with minimal pneumobilia likely secondary prior cholecystectomy and instrumentation. There is high-density material within the distal common bile duct which may represent sludge or stone. Pancreas: Unremarkable. Spleen: Unremarkable. Adrenals: Unremarkable. Kidneys and ureters: Unremarkable. Stomach and bowel: Marked bowel wall thickening with mucosal hyperenhancement and adjacent stranding seen within the rectum suggesting nonspecific inflammatory or infectious proctitis. PELVIS: Appendix: No findings to suggest acute appendicitis. Bladder: Unremarkable. Reproductive: Unremarkable as visualized. ABDOMEN and PELVIS: Intraperitoneal space: Unremarkable. Bones/joints: No acute fracture. No dislocation. Soft tissues: Unremarkable. Vasculature: Unremarkable. No abdominal aortic aneurysm. Lymph nodes: Unremarkable. IMPRESSION: 1. Marked bowel wall thickening with mucosal hyperenhancement and adjacent stranding seen within the rectum suggesting nonspecific inflammatory or infectious proctitis. 2. Mild intra-and extra hepatic bile duct dilatation with minimal pneumobilia likely secondary prior cholecystectomy and instrumentation. There is high-density material within the distal common bile duct which may represent sludge or stone.
[2018-12-04] MEDS ORDERED: cefTRIAXone 1 GM in NS 55 ML IVPB ONE (17:30)
--- NOTE | 2018-12-04 17:42 | NUR ---
ED Nurse Note: Per ERMD order, keep pt NPO.
--- NOTE | 2018-12-04 18:45 | NUR ---
Face sheet, doctors dictation and summary report faxed to [facility] as requested.
[2018-12-04] MEDS ORDERED: FAMOTIDINE10 MG ORAL (18:52)
[2018-12-04] MEDS ORDERED: LORAZEPAM0.5 MG ORAL (18:54)
--- NOTE | 2018-12-04 19:10 | NUR ---
HAND-OFF: Report given to MARY Hernandez and endorsed care, pt vss, ambulatory w/steady gait, resp even and unlabored on RA, iv intact and patent, no neuro changes.
--- NOTE | 2018-12-04 19:14 | NUR ---
HAND-OFF: Report received from Joycelyn Herrera RN. .
[2018-12-04 19:42] VITALS: BP 93/62
--- NOTE | 2018-12-04 19:45 | NUR ---
spoke with Dr. Austin who accepted patient. Registration aware.
--- NOTE | 2018-12-04 21:59 | NUR ---
ED Nurse Note: patient blood pressure low, patient placed in trendelenberg position. Patient 2 saturation read 79%, patient placed on 2L O2 via nasal canula, ERMD informed.
--- NOTE | 2018-12-04 22:12 | NUR ---
ED Nurse Note: Patient desatted to 89% without O2, Dr. henao O2 restart at 1L.
--- NOTE | 2018-12-04 22:20 | NUR ---
Spoke with Lorin -shoe caser from [facility]-gave me bed assignment at [facility], nurses phone number abd transportation information- [phone].
--- NOTE | 2018-12-04 22:54 | NUR ---
[place] ambulance is here to transport patient.
--- NOTE | 2018-12-04 23:04 | NUR ---
ED Nurse Note: BLS here for pick-upn to transfer patient out to [facility]. patient is a&Ox3, a little drowsy, satting at 97% on 1L via nasal canula. Patient is ambulatory with minimal assist. IV at left AC 20G saline locked. Report called into Nadege HERNANDEZ at [facility].
[2018-12-04 23:07] VITALS: BP 106/66
--- NOTE | 2018-12-07 15:38 | Cardiology Report ---
APPROVED REPORT EKG Measurement Heart [id number] NE [id number] Normal sinus rhythm Normal ECG
== END 2018-12-04 23:15 | disposition short-term general hospital (02) ==
LOC: EMR 15:00
DX: K52.9 Noninfective gastroenteritis and colitis, unspecified (principal); J18.9 Pneumonia, unspecified organism; N39.0 Urinary tract infection, site not specified; I10 Essential (primary) hypertension; Z86.73 Personal history of transient ischemic attack (TIA), and cerebral infarction without residual deficits; F32.9 Major depressive disorder, single episode, unspecified; K44.9 Diaphragmatic hernia without obstruction or gangrene
CPT/HCPCS: 36415; 71045; 74177; 80053; 81003; 82962; 83690; 84484; 85025; 85610; 85730; 87086; 87324; 93005; 96361; 96365; 96368; 96375; 99285; J0696; J2270; J2405; J7040; Q9967

== ENCOUNTER 2019-10-04 09:15 | Outpatient (CLI) | payer MEDICARE, MEDICAID ==
[~2019-10-04 09:15] MED LIST changes: +FAMOTIDINE10 MG ORAL; +LORAZEPAM0.5 MG ORAL; +PEPCID AC10 MG PO
--- NOTE | 2019-10-04 15:15 | Consultation ---
DATE OF CONSULTATION: 10/04/2019 CONSULTING PHYSICIAN: Manpreet Marquis M.D. CHIEF COMPLAINT: GERD and dysphagia. HISTORY OF PRESENT ILLNESS: This is a very pleasant 63-year-old [place] female with numerous medical problems, which I will dictate in a second. About two months ago, she had apparently hiatal hernia surgery at [facility]. She is complaining of dysphagia, not able to eat anything, only liquid will go down. She also had a stool OB positive three months ago prior to the procedure, but never had endoscopy and colonoscopy evaluation. PAST MEDICAL HISTORY: 1. Anxiety. 2. History of CVA 6 years ago. 3. Constipation. 4. GERD. 5. Osteoporosis. 6. Hiatal hernia. PAST SURGICAL HISTORY: Cholecystectomy and hernia repair. MEDICATIONS: Long medication reconciliation list. FAMILY HISTORY: Noncontributory. SOCIAL HISTORY: The patient denies any tobacco, alcohol, or drug abuse. ALLERGIES: No known allergies. REVIEW OF SYSTEMS: A 10-point review of systems was performed and pertinent positives in HPI. PHYSICAL EXAMINATION: GENERAL: This is a well-developed female, in no acute distress. HEENT: Normocephalic and atraumatic. Sclerae anicteric. NECK: Supple. No evidence of obvious lymphadenopathy. CARDIOVASCULAR: Regular rate and rhythm. Plus S1 and S2. No obvious murmur. LUNGS: Clear to auscultation bilaterally. ABDOMEN: Positive bowel sounds. Soft and nontender. No rebound. No guarding. No peritoneal sign. EXTREMITIES: No cyanosis. No clubbing. No edema ASSESSMENT AND PLAN: Dysphagia after hernia surgery and also had stool OB positive. For the above two complaints, the patient needs an endoscopy and colonoscopy. The patient was given the risks and benefits of the procedure. The prep was given to and explained to her. The patient is scheduled for October 21 for that. Because of constipation, her Linzess was increased from 145 mcg to 290 mcg. Because of the insomnia, the patient is currently on Xanax and Valium, but she wants to try two weeks of Ambien, so the patient was given prescription for only for two weeks 5 mg Ambien nightly. Manpreet Marquis M.D. DR: MARTHA JOB#: [id number] CC:
[2019-10-05] MEDS ORDERED: ROBAFEN DM COU473 ML PO (10:02)
[2019-10-05] MEDS ORDERED: LEVSIN-SL0.125 MG SL (10:02)
[2019-10-05] MEDS ORDERED: PAROXETINE HCL20 MG PO (10:02)
[2019-10-05] MEDS ORDERED: RESTASIS1 EACH BOTH EYES (10:02)
[2019-10-05] MEDS ORDERED: ATORVASTATIN CA20 MG ORAL (10:02)
[2019-10-05] MEDS ORDERED: MIRALAX17 G2 ORAL (10:02)
[2019-10-05] MEDS ORDERED: LORATADINE10 M2 PO (10:02)
[2019-10-05] MEDS ORDERED: FLUOROMETHOLONE5 ML OP (10:02)
[2019-10-05] MEDS ORDERED: NICODERM 7MG/24H1 EA TD (10:02)
[2019-10-05] MEDS ORDERED: BACLOFEN10 MG ORAL (10:02)
[2019-10-05] MEDS ORDERED: CALCIUM600 M1 PO (10:02)
[2019-10-05] MEDS ORDERED: LINZESS145 MCG PO (10:02)
[2019-10-05] MEDS ORDERED: TRAZODONE HCL100 MG ORAL (10:02)
[2019-10-05] MEDS ORDERED: CYMBALTA60 MG ORAL (10:02)
[2019-10-05] MEDS ORDERED: FENOFIBRATE145 M1 ORAL (10:02)
[2019-10-05] MEDS ORDERED: PANTOPRAZOLE SO40 MG ORAL (10:02)
[2019-10-05] MEDS ORDERED: CYCLOBENZAPRIN7.5 MG ORAL (10:02)
[2019-10-05] MEDS ORDERED: BENZONATATE200 MG ORAL (10:02)
[2019-10-05] MEDS ORDERED: FOSAMAX70 MG ORAL (10:02)
[2019-10-05] MEDS ORDERED: ELIQUIS5 MG PO (10:02)
[2019-10-05] MEDS ORDERED: ZOFRAN ODT8 MG ORAL (10:02)
[2019-10-05] MEDS ORDERED: TESSALON PERLE100 M2 ORAL (10:02)
[2019-10-05] MEDS ORDERED: ATIVAN0.5 MG ORAL (10:02)
[2019-10-05] MEDS ORDERED: SUMATRIPTAN SUC25 MG PO (10:02)
[2019-10-05] MEDS ORDERED: ACETAMINOPHEN500 M3 ORAL (10:02)
[2019-10-05] MEDS ORDERED: BUPROPION HCL150 M3 ORAL (10:02)
== END 2019-10-04 11:15 | disposition home or self-care (01) ==
LOC: PAN 09:15
DX: K21.9 Gastro-esophageal reflux disease without esophagitis (principal); R13.10 Dysphagia, unspecified; F41.9 Anxiety disorder, unspecified; Z86.73 Personal history of transient ischemic attack (TIA), and cerebral infarction without residual deficits; K59.00 Constipation, unspecified; M81.0 Age-related osteoporosis without current pathological fracture; Z90.49 Acquired absence of other specified parts of digestive tract
CPT/HCPCS: G0463

== ENCOUNTER 2019-11-07 13:11 | Outpatient (CLI) | payer MEDICARE, MEDICAID ==
[~2019-11-07 13:11] MED LIST changes: +ACETAMINOPHEN500 M3 ORAL; +ATORVASTATIN CA20 MG ORAL; +BACLOFEN10 MG ORAL; +BENZONATATE200 MG ORAL; +BUPROPION HCL150 M3 ORAL; +CYCLOBENZAPRIN7.5 MG ORAL; +DIETHYLPROPION25 MG PO; +DOCUSATE SODIU100 MG ORAL; +ELIQUIS5 MG PO; +FENOFIBRATE145 M1 ORAL; +FLUOROMETHOLONE5 ML OP; +HYDROCODON-ACE1 EA16 ORAL; +LEVSIN-SL0.125 MG SL; +LINZESS145 MCG PO; +LORATADINE10 M2 PO; +MIRALAX17 G2 ORAL; +NICODERM 7MG/24H1 EA TD; +NORGESTIMATE-E1 EAC1 PO; +PANTOPRAZOLE SO40 MG ORAL; +RESTASIS1 EACH BOTH EYES; +ROBAFEN DM COU473 ML PO; +SUMATRIPTAN SUC25 MG PO; +TESSALON PERLE100 M2 ORAL; +TRAZODONE HCL100 MG ORAL; +XANAX1 MG ORAL
--- NOTE | 2019-11-07 14:53 | General Progress Note ---
Assessment/Plan Assessment/Plan: SUMMARY OF FINDINGS: 1. Gastritis, status post biopsy. 2. Questionable history of hernia repair. 3. Irregular Z-line at 35 cm from the incisors. 4. Internal hemorrhoids. 5. One colonic polyp removed. See above for details. RECOMMENDATIONS: 1.needs speech eval and swallow study 2. Repeat colonoscopy in 5 years. Subjective ROS Limited/Unobtainable: Yes Allergies: Coded Allergies: No Known Allergies (Verified , 10/21/19) Objective General Appearance: alert EENT: normal ENT inspection Neck: supple Cardiovascular: normal rate Respiratory/Chest: decreased breath sounds Abdomen: normal bowel sounds, non tender, soft Extremities: non-tender Manpreet Marquis MD Nov 07, 2019 14:53
[2019-11-07 16:04] VITALS: BP 113/78
[2019-11-07] MEDS ORDERED: LINZESS145 MCG PO (16:06)
== END 2019-11-07 15:11 | disposition home or self-care (01) ==
LOC: PAN 13:11
DX: K29.70 Gastritis, unspecified, without bleeding (principal); K64.8 Other hemorrhoids; K63.5 Polyp of colon